=== PATIENT | female | born 1930 | race Caucasian/White ===

== ENCOUNTER 2018-04-03 09:14 | Inpatient (IN) | payer MEDICARE ==
[2018-04-03 10:42] LABS: #Lymphocytes 0.8 thou/uL (1.20-3.40); #Monocytes 0.8 thou/uL (0.11-0.59); #Neutrophils 13.7 thou/uL (1.40-6.50); %Basophils 0.1 % (0.0-1.0); %Eosinophils 0.1 % (0.0-10.0); %Lymphocytes 5.2 % (21.0-51.0); %Monocytes 4.9 % (0.0-10.0); %Neutrophils 89.6 % (42.0-75.0); Hemoglobin 13.9 g/dL (12.0-16.0); Mean Corpuscular HGB CONC 32.3 g/dL (32.0-36.0); Mean Corpuscular Volume 99.1 fL (78.0-98.0); Mean Platelet Volume 7.5 fL (7.4-10.4); Platelet Count 241 thou/uL (130-400); RBC Distribution Width 12.4 % (11.5-14.5); Red Blood Cell (RBC) Count 4.35 mill/uL (4.20-5.40); White Blood Cell (WBC) Count 15.2 thou/uL (4.8-10.8)
[2018-04-03 11:07] LABS: Troponin I 0.026 ng/mL (< 0.028)
[2018-04-03 11:12] LABS: CKMB 25.4 ng/mL (0-6.6)
[2018-04-03 12:04] LABS: Bilirubin Negative (Negative); Blood, Urine Small (Negative); Glucose, Urine (Dipstick) Negative (Negative); Leukocyte Trace (Negative); Nitrite Positive (Negative); Protein, Urine (Dipstick) Negative (Neg-Trace); Urobilinogen 0.2 mg/dL (0.2-1.0); pH, Urine 5.5 (5.0-9.0)
[2018-04-03 12:06] LABS: Clarity Cloudy (Clear)
[2018-04-03 12:07] LABS: Specific Gravity, Urine 1.019 (1.002-1.036)
[2018-04-03 12:07] LABS: Albumin 4.2 g/dL (3.4-4.8)
[2018-04-03 12:08] LABS: Chloride 108 mmol/L (98-107); Potassium 3.7 mmol/L (3.5-5.1)
[2018-04-03 12:09] LABS: Calcium 9.6 mg/dL (7.8-10.44); Sodium 146 mmol/L (136-145)
--- NOTE | 2018-04-03 12:09 | CT ---
BRAIN CTR WITHOUT IV CONTRAST: History: 87-year-old female with history of injury. FINDINGS: There is some atrophy and chronic white matter ischemic change bilaterally. No focal mass or midline shift. No intra or extraaxial hemorrhage. There is mucosal or soft tissue changes filling the entire right maxillary sinus as well as disease in the right ethmoid sinus and right frontal sinus. These ch anges are new when compared to an 01-11-17 study. The mastoids are clear. IMPRESSION: Extensive sinus mucosal changes filling the entire right maxillary sinus with disease in the right et hmoid and right frontal sinus where sparing of the sphenoid sinus. No intracranial mass or acute hemo rrhage. POS: [facility]
[2018-04-03 12:10] LABS: Glucose 86 mg/dL (83-110); Protein, Total 7.2 g/dL (6.0-8.3)
--- NOTE | 2018-04-03 12:10 | RAD ---
RADIOGRAPH CHEST 1 VIEW: DATE: 04-03-18 TIME: 11:06 A.M. HISTORY: 87-year-old female status post acute chest trauma from fall. FINDINGS: There is cardiomegaly. The thoracic aorta is tortuous and ectatic. There is no evidence of air space density, pulmonary edema, or pneumothorax. The lateral costophrenic angles are sharp. There is no i nterval change from 17. IMPRESSION: 1) No acute pulmonary findings. 2) Cardiomegaly without congestive heart failure. 3) Ectasia of thoracic aorta. 4) Elevated right hemidiaphragm. 5) Pacemaker. margie POS: [facility]
[2018-04-03 12:11] LABS: Anion Gap 25 mmol/L (10-20); Carbon Dioxide 17 mmol/L (23-31)
[2018-04-03 12:12] LABS: Bilirubin, Total 0.6 mg/dL (0.2-1.2)
--- NOTE | 2018-04-03 12:12 | RAD ---
PELVIS ONE VIEW: History: Injury. Comparison: None. FINDINGS: No displaced fracture of the pelvis is appreciated. Superior and inferior pubic rami are intact. IMPRESSION: No acute abnormality. POS: [facility]
[2018-04-03 12:13] LABS: Alkaline Phosphatase 63 U/L (40-150); Calc. Creatinine Clearance 0 mL/min (70-130); Estimated GFR-MDRD 70
[2018-04-03 12:14] LABS: BUN (Urea Nitrogen) 37 mg/dL (9.8-20.1)
[2018-04-03 12:15] LABS: AST (SGOT) 50 U/L (5-34)
--- NOTE | 2018-04-03 12:15 | CT ---
CT CERVICAL SPINE WITH CORONAL AND SAGITTAL REFORMATS: History: Trauma. Fall. Neck pain. FINDINGS: Multilevel degenerative changes are present. No acute fracture or subluxation is seen. No facet malal ignment is identified. There are thyroid nodules, the largest measuring about 2 cm in the right lobe. This would be better e valuated on an ultrasound on a non-emergent basis. POS: [facility]
[2018-04-03 12:16] LABS: ALT (SGPT) 12 U/L (8-55); CK (CPK) 1517 U/L (29-168)
[2018-04-03 12:17] LABS: Bacteria/HPF 3+ HPF (None Seen); Transitional Epithelial 0-3 HPF (0-3)
[2018-04-03] MEDS ORDERED: Vancomycin HCl 500 MG VIAL ONE (13:06)
[2018-04-03] MEDS ORDERED: Levofloxacin 500 mg/D5W 100 ml Premix Bag ONE (13:08)
[2018-04-03] MEDS ORDERED: Ondansetron ODT 4 MG TAB PO PRN (14:20)
[2018-04-03 14:23] VITALS: BMI 24.0
--- NOTE | 2018-04-03 14:45 | HP ---
DATE OF ADMISSION: 04/03/2018 PRIMARY CARE PROVIDER: Love Hall D.O. REASON FOR ADMISSION: Referred from [facility] for rhabdomyolysis, UTI, hyperna tremia. HISTORY OF PRESENT ILLNESS: The patient's caregiver (she has everyday caregivers) [facility] the [facility]. She was initially somewhat responsive despite having dementia. At th e time I have examined her, she does not respond to verbal or mild physical stimuli. The caregiver f ound as she looked around that the patient had not been given her medicines over the weekend and niurka junior had not been seen. She called 911. She was brought to the emergency room. The patient is cu rrently as I previously said not responsive to verbal or mild tactile stimuli. No other history is a vailable. PAST MEDICAL HISTORY: Pertinent for mitral insufficiency, hypertension, irritable bowel syndrome, ch ronic back pain, hypercholesterolemia, anxiety disorder, macular degeneration, dysthymic disorder, ga stroesophageal reflux disease, insomnia. CURRENT MEDICATIONS: Aspirin 325 mg a day, candesartan 8 mg a day, Singulair 10 mg a day, ferrous adam lfate 325 mg twice a day, Risperdal 0.25 mg twice a day, Protonix 40 mg a day, Osteo Bi-Flex, Alrex, ICaps, Systane Ultra, Zoloft 50 mg a day. ALLERGIES: CODEINE, LYRICA and PENICILLINS. PAST SURGICAL HISTORY: Knee replacement, right foot surgery, tubal ligation, hysterectomy, cholecyst ectomy, pacemaker. SOCIAL HISTORY: Lives alone, but has daily caregivers. She also has home health. She is a nonsmoke r. Her son, Juan Khan is her decision maker. She is DNR with a documented resuscitation statu s. This was confirmed. FAMILY HISTORY: She has a son with a heart murmur and back pain. Her parents are . No hist ory. REVIEW OF SYSTEMS: Unobtainable due to the fact that the patient is nonresponsive to verbal stimuli and apparently has not seen a caregiver in 2 days. PHYSICAL EXAMINATION: VITAL SIGNS: Not responsive to verbal or mild stimuli, physical. Blood pressure 120/72, pulse 84, r espirations 18, temperature 98.9, room air sat 94. HEENT: Reveal pupils are about 2 mm and minimally reactive. Extraocular movements reveal negative d oll's eyes. Sclerae are white. Tympanic membranes are clear. Nose is clear. Oral mucous membranes are dry. In addition, her skin turgor is poor. NECK: No jugular venous distention, adenopathy or thyromegaly. CHEST: Clear to auscultation and percussion. Poor inspiratory effort, however. HEART: Regular rate and rhythm. A 3/6 holosystolic murmur across the precordium, loudest at the ape x. ABDOMEN: Soft. Bowel sounds normal. No hepatosplenomegaly, no mass, no rebound, no bruits. EXTREMITIES: Reveal no cyanosis, clubbing or edema. PULSES: Carotid, radial and femoral pulses were palpable and symmetric. Pedal pulses were a little difficult, but present. SKIN: Warm and dry with no bruises. No rash. HEME/LYMPH: No tender or swollen lymph nodes in axilla, inguinal or cervical area. NEUROLOGIC: Cranial nerves II-XII grossly intact. Deep tendon reflexes symmetric. Toes downgoing. IMAGING: EKG, regular sinus rhythm, nonspecific ST-T abnormality. Chest x-ray, borderline cardiomeg marvin, no infiltrate or CHF, pacemaker in the left upper chest, reviewed by me. Brain CT, no acute int racranial abnormality, specifically no bleeding or mass effect, reviewed by me. LABORATORY DATA: CBC, white count 15.2, hemoglobin 13.9, platelet count 244,000. Chemistry, sodium high at 146, potassium normal at 3.7, chloride high at 108, CO2 low at 17, BUN high at 37, creatinine normal at 0.78, AST 50. Liver function tests normal otherwise. Creatine kinase 1517. Urinalysis 4 -6 white cells with trace leukocyte esterase. ADMITTING DIAGNOSES: 1. Encephalopathy. 2. Rhabdomyolysis. 3. Dehydration. 4. Hypernatremia. 5. Urinary tract infection. 6. Mitral insufficiency. 7. Hypertension. PLAN: 1. IV fluids with D5 half normal saline. Monitor basic metabolic profile. 2. Cultures have been drawn. Rocephin will be started for urinary tract infection. 3. Monitor CK, mental status, etc. Routine medicines will be held for a brief period of time and th en reinstituted as appropriate.
[2018-04-03] MEDS: cefTRIAXone\\ROCEPHIN 1 GM in Sodium Chloride 0.9% 100 ML IVPB SCH (16:08)
[2018-04-03] MEDS: D5 1/4 NS w/20 mEq KCL 1,000 ML IV SCH ×2 (16:31→23:44)
[2018-04-04 05:01] LABS: Anion Gap 11 mmol/L (10-20); BUN (Urea Nitrogen) 28 mg/dL (9.8-20.1); Calc. Creatinine Clearance 46 mL/min (70-130); Calcium 8.9 mg/dL (7.8-10.44); Carbon Dioxide 25 mmol/L (23-31); Chloride 110 mmol/L (98-107); Estimated GFR-MDRD 69; Glucose 118 mg/dL (83-110); Potassium 3.6 mmol/L (3.5-5.1); Sodium 142 mmol/L (136-145)
[2018-04-04] MEDS: D5 1/4 NS w/20 mEq KCL 1,000 ML IV SCH ×3 (07:59→15:01)
[2018-04-04] MEDS: Enoxaparin Sodium 40 MG/0.4 ML SYRINGE SC SCH (08:00)
--- NOTE | 2018-04-04 13:08 | PDOC.PN ---
- Subjective Encounter Start Date: 04/04/18 Encounter Start Time: 13:06 Subjective: more alert - Objective Resuscitation Status: Resuscitation Status DNR:Do Not Resuscitate MAR Reviewed: Yes Vital Signs & Weight: Vital Signs (12 hours) Temp Pulse Resp BP Pulse Ox 04/04/18 12:26 99.4 F 84 16 125/73 94 L 04/04/18 08:32 99.2 F 84 20 136/68 93 L 04/04/18 08:00 93 L Weight Weight 127 lb 4.8 oz I&O: 04/03/18 04/04/18 04/05/18 06:59 06:59 06:59 Intake Total 2600 Balance 2600 Result Diagrams: 04/03/18 09:53 04/04/18 04:14 Phys Exam - Physical Examination Neck: no JVD Respiratory: clear to auscultation bilateral Cardiovascular: RRR, no significant murmur Gastrointestinal: soft, positive bowel sounds Musculoskeletal: no edema Dx/Plan (1) Rhabdomyolysis Code(s): M62.82 - RHABDOMYOLYSIS Status: Acute (2) Hypernatremia Code(s): E87.0 - HYPEROSMOLALITY AND HYPERNATREMIA Status: Resolved (3) UTI (urinary tract infection) Status: Acute (4) Encephalopathy Code(s): G93.40 - ENCEPHALOPATHY, UNSPECIFIED Status: Acute - Plan cont iv fluids -: cont antibx -: await C&S -: selected home meds * .
[2018-04-04] MEDS: cefTRIAXone\\ROCEPHIN 1 GM in Sodium Chloride 0.9% 100 ML IVPB SCH (15:01)
[2018-04-04] MEDS: Polyethylene Glycol OPTH DROP 15 ML BOT EA EYE SCH ×2 (16:37→20:00)
[2018-04-04] MEDS: Ferrous Sulfate 325 MG TAB PO SCH (20:00)
[2018-04-04] MEDS: risperiDONE 0.25 MG TAB PO SCH (20:00)
[2018-04-04] MEDS ORDERED: LOTEPREDNOL ETABONATE EA EYE SCH (21:00)
[2018-04-04] MEDS: Acetaminophen 325 MG TAB PO PRN (23:46)
--- NOTE | 2018-04-04 23:48 | PDOC.EVN ---
Event Note - Event Note Event Note: pt had a fever of 101. blood cx drawn but pt is on abx. previous urine cx indicated enterococcus and Proteus. pt is also tachypnic will change abx to meropenem.
[2018-04-05] MEDS ORDERED: MEROPENEM 1 GM/50 ML 1 GM in Premix Bag 1 BAG IVPB SCH (00:30)
[2018-04-05] MEDS ORDERED: Vancomycin HCl 1 GM in Premix Bag 1 BAG IVPB SCH (00:45)
[2018-04-05] MEDS: D5 1/4 NS w/20 mEq KCL 1,000 ML IV SCH ×4 (02:09→23:30)
[2018-04-05] MEDS ORDERED: Meropenem 1 GM in Sodium Chloride 0.9% 100 ML IVPB SCH (06:00)
[2018-04-05 06:19] LABS: Anion Gap 9 mmol/L (10-20); BUN (Urea Nitrogen) 10 mg/dL (9.8-20.1); Calc. Creatinine Clearance 60 mL/min (70-130); Calcium 8.8 mg/dL (7.8-10.44); Carbon Dioxide 26 mmol/L (23-31); Chloride 103 mmol/L (98-107); Estimated GFR-MDRD Greater than 90; Glucose 159 mg/dL (83-110); Potassium 4.1 mmol/L (3.5-5.1); Sodium 134 mmol/L (136-145)
[2018-04-05] MEDS: Ferrous Sulfate 325 MG TAB PO SCH ×2 (09:20→20:39)
[2018-04-05] MEDS: risperiDONE 0.25 MG TAB PO SCH ×2 (09:20→20:40)
[2018-04-05] MEDS: Enoxaparin Sodium 40 MG/0.4 ML SYRINGE SC SCH (09:21)
[2018-04-05] MEDS: Polyethylene Glycol OPTH DROP 15 ML BOT EA EYE SCH ×4 (09:21→20:40)
[2018-04-05] MEDS: Aspirin 325 mg Enteric Coated Tablet PO SCH (09:21)
--- NOTE | 2018-04-05 11:13 | PDOC.PN ---
- Subjective Encounter Start Date: 04/05/18 Encounter Start Time: 11:11 Subjective: no distress, elevated temp last pm - Objective Resuscitation Status: Resuscitation Status DNR:Do Not Resuscitate MAR Reviewed: Yes Vital Signs & Weight: Vital Signs (12 hours) Temp Pulse Resp BP BP Pulse Ox 04/05/18 07:48 16 98 04/05/18 07:14 98.7 F 81 28 H 126/75 100 04/05/18 05:23 98.5 F 81 24 H 122/78 100 04/05/18 04:00 99 04/05/18 01:00 99.3 F 04/05/18 00:00 101.2 F H 99 20 126/84 94 L Weight Weight 127 lb 4.8 oz I&O: 04/04/18 04/05/18 04/06/18 06:59 06:59 06:59 Intake Total 2600 3330 Balance 2600 3330 Result Diagrams: 04/03/18 09:53 04/05/18 05:41 Phys Exam - Physical Examination Neck: no JVD Respiratory: clear to auscultation bilateral Cardiovascular: RRR, no significant murmur Gastrointestinal: soft, positive bowel sounds Musculoskeletal: no edema Dx/Plan (1) Rhabdomyolysis Code(s): M62.82 - RHABDOMYOLYSIS Status: Acute (2) Hypernatremia Code(s): E87.0 - HYPEROSMOLALITY AND HYPERNATREMIA Status: Resolved (3) UTI (urinary tract infection) Status: Acute (4) Encephalopathy Code(s): G93.40 - ENCEPHALOPATHY, UNSPECIFIED Status: Acute (5) Fever Code(s): R50.9 - FEVER, UNSPECIFIED Status: Acute - Plan urine C&S not obtained in ED -: rpt order UA urine C&C, CK, CBC -: cont iv antibx * .
[2018-04-05 12:15] LABS: #Lymphocytes 0.9 thou/uL (1.20-3.40); #Monocytes 1.5 thou/uL (0.11-0.59); #Neutrophils 8.4 thou/uL (1.40-6.50); %Basophils 0.1 % (0.0-1.0); %Eosinophils 0.4 % (0.0-10.0); %Lymphocytes 8.5 % (21.0-51.0); %Monocytes 13.6 % (0.0-10.0); %Neutrophils 77.4 % (42.0-75.0); Hemoglobin 12.1 g/dL (12.0-16.0); Mean Corpuscular HGB CONC 31.1 g/dL (32.0-36.0); Mean Corpuscular Hemoglobin 30.9 pg (27.0-31.0); Mean Corpuscular Volume 99.2 fL (78.0-98.0); Mean Platelet Volume 7.9 fL (7.4-10.4); Platelet Count 206 thou/uL (130-400); RBC Distribution Width 12.1 % (11.5-14.5); Red Blood Cell (RBC) Count 3.92 mill/uL (4.20-5.40); White Blood Cell (WBC) Count 10.8 thou/uL (4.8-10.8)
[2018-04-05] MEDS: Acetaminophen 325 MG TAB PO PRN (12:29)
[2018-04-05] MEDS: cefTRIAXone\\ROCEPHIN 1 GM in Sodium Chloride 0.9% 100 ML IVPB SCH (15:35)
--- NOTE | 2018-04-05 17:23 | PQF ---
CLINICAL DOCUMENTATION IMPROVEMENT CLARIFICATION FORM: ICD-10 Updated PLEASE DO AN ADDENDUM TO THE PROGRESS NOTE WITH ANY DOCUMENTATION UPDATES OR ADDITIONS AND CARRY THROUGH TO DC SUMMARY. THANK YOU. DATE: 04/05/18 ; 04/06/18 ATTN: Dr. Radford/ Dr. Jewell Please exercise your independent, professional judgment in responding to the clarification form. Clinical indicators are provided on the bottom of this form for your review Please check appropriate box(s): [ x] Encephalopathy: Etiology: [ x] Metabolic [ ] Toxic [ ] Septic [ ] Unspecified [ ] in the setting of underlying dementia [ ] Other (please specify) [ ] Other diagnosis [ ] Unable to determine In addition, please specify: Present on Admission (POA): [x ] Yes [ ] No [ ] Unable to determine For continuity of documentation, please document condition throughout progress notes and discharge summary. Thank You. CLINICAL INDICATORS - SIGNS / SYMPTOMS / LABS EVENT NOTE 04/04: PT HAD A FEVER OF 101. PREVIOUS URINE CX INDICATED ENTEROCOCCUS & PROTEUS. PT IS ALSO TACHYPNIC WILL CHANGE ABX TO MEROPENEM PN 04/04-04/05: ENCEPHALOPATHY, UNSPECIFIED. ACUTE RISKS: H&P 04/03: 87 YO. PT'S CAREGIVER FOUND HER ON THE FLOOR. ENCEPHALOPATHY. RHABDOMYOLYSIS. DEHYDRATION. HYPERNATREMIA. UTI TREATMENT: H&P: IV FLUIDS WITH D5 HALF NS. MONITOR BASIC METABOLIC PROFILE. MONITOR CK, MENTAL STATUS ORDER 04/05: IV VANCOMYCIN; IV ROCEPHIN ORDER 04/04: BLOOD CX Thank you, Katherine (This form is maintained as a part of the permanent medical record) 2015 [employer]. All Rights Reserved Katherine Bauman RN, BSN [email or web address] Office: [phone] [facility]
[2018-04-05] MEDS: Fiorinal 325/50/40 mg Tablet PO SCH (20:41)
[2018-04-05] MEDS ORDERED: CAFFEINE PO SCH (21:00)
[2018-04-05] MEDS ORDERED: BUTALBITAL PO SCH (21:00)
[2018-04-05] MEDS ORDERED: ASPIRIN PO SCH (21:00)
[2018-04-05] MEDS ORDERED: [UNRECOGNIZED DRUG - OTHER] PO SCH (21:00)
[2018-04-06] MEDS ORDERED: Vancomycin HCl 750 MG in Sodium Chloride 0.9% 250 ML 250 ML IVPB SCH (01:00)
[2018-04-06] MEDS: Vancomycin HCl 750 MG in Sodium Chloride 0.9% 250 ML 250 ML IVPB SCH (02:17)
[2018-04-06] MEDS: D5 1/4 NS w/20 mEq KCL 1,000 ML IV SCH (06:35)
[2018-04-06] MEDS: Ferrous Sulfate 325 MG TAB PO SCH ×2 (08:50→20:19)
[2018-04-06] MEDS: Polyethylene Glycol OPTH DROP 15 ML BOT EA EYE SCH ×4 (08:50→20:20)
[2018-04-06] MEDS: risperiDONE 0.25 MG TAB PO SCH ×2 (08:50→20:20)
[2018-04-06] MEDS: Aspirin 325 mg Enteric Coated Tablet PO SCH (08:50)
[2018-04-06] MEDS: Enoxaparin Sodium 40 MG/0.4 ML SYRINGE SC SCH (08:51)
[2018-04-06] MEDS ORDERED: Docusate 100 MG CAP PO SCH (12:00)
--- NOTE | 2018-04-06 13:12 | PDOC.PN ---
- Subjective Encounter Start Date: 04/06/18 Encounter Start Time: 11:00 Subjective: awake, no sob or chest pain, is sitting in chair - Objective Resuscitation Status: Resuscitation Status DNR:Do Not Resuscitate MAR Reviewed: Yes Vital Signs & Weight: Vital Signs (12 hours) Temp Pulse Resp BP Pulse Ox Pulse Ox 04/06/18 12:37 98.6 F 88 16 118/86 99 04/06/18 09:16 98 04/06/18 08:00 98.2 F 74 16 144/83 H 99 04/06/18 03:37 98.8 F 84 16 143/78 H 93 L Weight Weight 127 lb 4.8 oz I&O: 04/05/18 04/06/18 04/07/18 06:59 06:59 06:59 Intake Total 3330 1970 Output Total 1000 Balance 3330 970 Result Diagrams: 04/05/18 05:41 04/05/18 05:41 Phys Exam - Physical Examination HEENT: PERRLA, moist MMs Neck: no JVD, supple Respiratory: no wheezing, no rales Cardiovascular: RRR, no significant murmur Gastrointestinal: soft, non-tender, positive bowel sounds Musculoskeletal: no edema, pulses present Neurological: non-focal is deconditioned Dx/Plan (1) Rhabdomyolysis Code(s): M62.82 - RHABDOMYOLYSIS Status: Acute Qualifiers: Encounter type: subsequent encounter (2) Physical deconditioning Code(s): R53.81 - OTHER MALAISE Status: Acute (3) Encephalopathy Code(s): G93.40 - ENCEPHALOPATHY, UNSPECIFIED Status: Acute Comment: resolving (4) UTI (urinary tract infection) Status: Acute Qualifiers: Urinary tract infection type: acute cystitis Hematuria presence: without hematuria Qualified Code(s): N30.00 - Acute cystitis without hematuria (5) Hypernatremia Code(s): E87.0 - HYPEROSMOLALITY AND HYPERNATREMIA Status: Resolved (6) Hypertension Code(s): I10 - ESSENTIAL (PRIMARY) HYPERTENSION Status: Chronic Qualifiers: Hypertension type: essential hypertension Qualified Code(s): I10 - Essential (primary) hypertension - Plan hemostable -: family at bedside is encouraging po intake -: dc iv fluids -: PT eval, dc plan in am to coperas [place] -: is on ceftri and vanc, asp, candesartan, risperdal and zoloft * . Review of Systems - Medications/Allergies Allergies/Adverse Reactions: Allergies Allergy/AdvReac Type Severity Reaction Status Date / Time pregabalin [From Lyrica] Allergy Unknown Verified 01/11/17 15:20 codeine Allergy Verified 07/01/15 03:12 Latex, Natural Rubber Allergy Verified 04/05/18 00:18 Penicillins Allergy Verified 07/01/15 03:12 Medications: Current Medications Acetaminophen (Tylenol) 650 mg PO Q4H PRN PRN Reason: Headache/Fever/Mild Pain (1-3) Last Admin: 04/05/18 12:29 Dose: 650 mg Aspirin (Ecotrin) 325 mg PO DAILY [facility] Last Admin: 04/06/18 08:50 Dose: 325 mg Butalbital/Aspirin/Caffeine (Fiorinal) 0 tab PO HS [facility] Last Admin: 04/05/18 20:41 Dose: 1 tab Candesartan Cilexetil (Atacand) 8 mg PO DAILY [facility] Last Admin: 04/06/18 08:49 Dose: 8 mg Docusate Sodium (Colace) 100 mg PO BID [facility] Docusate Sodium (Colace) 100 mg PO NOW [facility] Stop: 04/06/18 14:00 Last Admin: 04/06/18 13:07 Dose: Not Given Enoxaparin Sodium (Lovenox) 40 mg SC 0900 [facility] Last Admin: 04/06/18 08:51 Dose: 40 mg Ferrous Sulfate (Feosol) 325 mg PO BID [facility] Last Admin: 04/06/18 08:50 Dose: 325 mg Ceftriaxone Sodium 1 gm/ (Sodium Chloride) 100 mls @ 200 mls/hr IVPB 1500 [facility] Last Admin: 04/05/18 15:35 Dose: 100 mls Vancomycin HCl 750 mg/ Sodium (Chloride) 250 mls @ 200 mls/hr IVPB 0200 [facility] Last Admin: 04/06/18 02:17 Dose: 250 mls Miscellaneous Medication (Pharmacy To Dose) 1 each IVPB ONE PRN PRN Reason: Pharmacy to dose Stop: 04/15/18 00:38 Ondansetron HCl (Zofran Odt) 4 mg PO Q6H PRN PRN Reason: Nausea/Vomiting Pantoprazole Sodium (Protonix) 40 mg PO DAILY [facility] Last Admin: 04/06/18 08:50 Dose: 40 mg Loteprednol Etabonate [Alrex 0.2 % Ophth Susp] 1 Drop 0 each EA EYE BID [facility] Polyethylene Glycol (Miralax) 17 gm PO DAILY [facility] Propylene Glycol (Systane Opth Drop 15ml Bot) 1 drop EA EYE QID [facility] Last Admin: 04/06/18 08:50 Dose: 1 drop Risperidone (Risperidone) 0.25 mg PO BID [facility] Last Admin: 04/06/18 08:50 Dose: 0.25 mg Sertraline HCl (Zoloft) 50 mg PO DAILY [facility] Last Admin: 04/06/18 08:50 Dose: 50 mg
[2018-04-06] MEDS: cefTRIAXone\\ROCEPHIN 1 GM in Sodium Chloride 0.9% 100 ML IVPB SCH (15:12)
[2018-04-06] MEDS: Docusate 100 MG CAP PO SCH (20:20)
[2018-04-06] MEDS: Fiorinal 325/50/40 mg Tablet PO SCH (20:31)
[2018-04-07 01:29] LABS: Vancomycin, Trough 6.9 ug/mL
[2018-04-07] MEDS: Vancomycin HCl 750 MG in Sodium Chloride 0.9% 250 ML 250 ML IVPB SCH (01:48)
[2018-04-07] MEDS: Docusate 100 MG CAP PO SCH (07:59)
[2018-04-07] MEDS: Ferrous Sulfate 325 MG TAB PO SCH (07:59)
[2018-04-07] MEDS: risperiDONE 0.25 MG TAB PO SCH (08:00)
[2018-04-07] MEDS: Enoxaparin Sodium 40 MG/0.4 ML SYRINGE SC SCH (08:00)
[2018-04-07] MEDS: Aspirin 325 mg Enteric Coated Tablet PO SCH (08:00)
[2018-04-07] MEDS: Polyethylene Glycol OPTH DROP 15 ML BOT EA EYE SCH ×2 (08:03→12:59)
[2018-04-07] MEDS ORDERED: Polyethylene Glycol 3350 17 GM Packet PO SCH (09:00)
[2018-04-07 11:24] VITALS: BP 126/82; TEMP 98.6
--- NOTE | 2018-04-07 11:59 | PDOC.PN ---
- Subjective Encounter Start Date: 04/07/18 Encounter Start Time: 08:00 Subjective: no sob, feels better -: awake, follows verbal stimuli -: is moving all extremities - Objective Resuscitation Status: Resuscitation Status DNR:Do Not Resuscitate MAR Reviewed: Yes Vital Signs & Weight: Vital Signs (12 hours) Temp Pulse Resp BP Pulse Ox 04/07/18 11:24 98.6 F 92 18 126/82 92 L 04/07/18 07:55 96 04/07/18 07:45 98.8 F 80 16 145/93 H 96 04/07/18 05:00 17 151/85 H 94 L Weight Weight 127 lb 4.8 oz I&O: 04/06/18 04/07/18 04/08/18 06:59 06:59 06:59 Intake Total 1970 1700 Output Total 1000 Balance 970 1700 Result Diagrams: 04/05/18 05:41 04/05/18 05:41 Phys Exam - Physical Examination HEENT: PERRLA, moist MMs Neck: no JVD, supple Respiratory: no wheezing, no rales Cardiovascular: RRR, no significant murmur Gastrointestinal: soft, non-tender, positive bowel sounds Musculoskeletal: no edema, pulses present Neurological: non-focal, moves all 4 limbs Psychiatric: A&O x 3 Dx/Plan (1) Rhabdomyolysis Code(s): M62.82 - RHABDOMYOLYSIS Status: Resolved Qualifiers: Encounter type: subsequent encounter (2) Physical deconditioning Code(s): R53.81 - OTHER MALAISE Status: Acute (3) Encephalopathy Code(s): G93.40 - ENCEPHALOPATHY, UNSPECIFIED Status: Resolved (4) UTI (urinary tract infection) Status: Acute Qualifiers: Urinary tract infection type: acute cystitis Hematuria presence: without hematuria Qualified Code(s): N30.00 - Acute cystitis without hematuria (5) Hypernatremia Code(s): E87.0 - HYPEROSMOLALITY AND HYPERNATREMIA Status: Resolved (6) Hypertension Code(s): I10 - ESSENTIAL (PRIMARY) HYPERTENSION Status: Chronic Qualifiers: Hypertension type: essential hypertension Qualified Code(s): I10 - Essential (primary) hypertension - Plan is at baseline cognitive status -: to work with PT at [facility] -: hemostable -: dc pt on levaquin * .
--- NOTE | 2018-04-07 13:27 | DIS ---
DATE OF ADMISSION: 04/03/2018 DATE OF DISCHARGE: 04/07/2018 DISCHARGE DISPOSITION: To [facility]. PRIMARY DISCHARGE DIAGNOSES: Rhabdomyolysis with deconditioning, acute encephalopathy resolved, urin thomas tract infection, hypernatremia, hypertension. PROCEDURES DONE DURING HOSPITALIZATION: CT brain without IV contrast done showed extensive sinus muc osal changes, filling the entire right maxillary sinus with disease in the right ethmoid and right fr ontal sinus with sparing of the sphenoid sinus. No intracranial mass or acute hemorrhage seen. CT c ervical spine showed multilevel degenerative changes. No acute fracture or subluxation was seen. Th e patient had thyroid nodules with the largest measuring about 2 cm in the right lobe of her thyroid. Pelvic x-ray 1 view done showed no acute abnormality. Chest x-ray done showed no acute pulmonary f indings. There was cardiomegaly without congestion. Blood cultures x2, no growth. Urine culture, n o growth. Had a white count of 15 on the day of admission with 89% neutrophils. CK levels were 1517 on admission with repeat levels of 410 on the . BUN 10, creatinine 0.6. UA showed positive nit rite, trace leukoesterase, 4-6 wbc's and 3+ bacteria. DISCHARGE MEDICATIONS: Levaquin 500 mg p.o. daily for another 4 days, Risperdal 0.25 mg p.o. twice d aily, Colace 100 mg p.o. twice daily, sertraline 50 mg daily, Protonix 40 mg daily, Singulair 10 mg d aily, ferrous sulfate 325 mg p.o. twice daily, Atacand 8 mg p.o. daily, aspirin 325 mg p.o. daily. ALLERGIES: LYRICA, CODEINE, LATEX and PENICILLIN. DISCHARGE PLAN: The patient to follow up with primary care physician in 1 week. BRIEF COURSE DURING HOSPITALIZATION: The patient initially got admitted on the for acute enceph alopathy. Further workup revealed sinusitis with urinary tract infection. She has had multiple imag ing studies done, which have not shown any acute changes as described above. She had mild rhabdomyol ysis with acute kidney injury as well. The patient was gently hydrated and lopez cultures were obtaine d. She has responded to above measures. She has deconditioning and is being discharged to [facility] for further recuperation prior to going home. The patient would benefit from out patient ENT consultation after she finishes her course of antibiotics. She was on IV antibiotics, wh ich have been switched over to Levaquin at the time of discharge. A total of 35 minutes was spent on discharge plan. Please see a [id number] documentation on [facility] for the day of discharge.
[2018-04-07] MEDS ORDERED: Vancomycin HCl 750 MG in Sodium Chloride 0.9% 250 ML 250 ML IVPB SCH (14:00)
== END 2018-04-07 13:45 | DRG 557 ==
LOC: ERS 09:14 → T4-A 14:06
PROVIDERS: ADMIT Internal Medicine; ATTEND Internal Medicine
DX: M62.82 Rhabdomyolysis (principal); G93.41 Metabolic encephalopathy; E87.0 Hyperosmolality and hypernatremia; N17.9 Acute kidney failure, unspecified; N30.00 Acute cystitis without hematuria; E86.0 Dehydration; I10 Essential (primary) hypertension; I34.0 Nonrheumatic mitral (valve) insufficiency; Z95.0 Presence of cardiac pacemaker; E78.00 Pure hypercholesterolemia, unspecified; K21.9 Gastro-esophageal reflux disease without esophagitis; Z66 Do not resuscitate; J32.2 Chronic ethmoidal sinusitis; J32.1 Chronic frontal sinusitis
CPT/HCPCS: 36415; 51701; 70450; 71045; 72125; 72170; 80048; 80053; 80202; 81003; 81015; 82550; 82553; 84484; 85025; 87040; 87086; 93005; 96361; 96365; A4353; G8978-GP-CM; G8979-GP-CK; J0696; J1650; J1956; J2185; J3370; J7050

== ENCOUNTER 2019-02-14 11:27 | Emergency (ER) | payer MEDICARE ==
[2019-02-14 12:20] LABS: #Eosinphils 0.1 thou/uL (0.0-0.7); #Monocytes 0.8 thou/uL (0.11-0.59); #Neutrophils 6.3 thou/uL (1.40-6.50); %Basophils 0.5 % (0.0-1.0); %Eosinophils 0.9 % (0.0-10.0); %Lymphocytes 12.6 % (21.0-51.0); %Monocytes 9.4 % (0.0-10.0); %Neutrophils 76.6 % (42.0-75.0); Hemoglobin 12.4 g/dL (12.0-16.0); Mean Corpuscular HGB CONC 32.8 g/dL (32.0-36.0); Mean Corpuscular Hemoglobin 30.9 pg (27.0-31.0); Mean Corpuscular Volume 94.2 fL (78.0-98.0); Platelet Count 254 thou/uL (130-400); RBC Distribution Width 11.9 % (11.5-14.5); Red Blood Cell (RBC) Count 4.02 mill/uL (4.20-5.40); White Blood Cell (WBC) Count 8.3 thou/uL (4.8-10.8)
--- NOTE | 2019-02-14 12:24 | RAD ---
SINGLE VIEW OF CHEST: Date: 02/14/19 COMPARISON: 01/03/19. HISTORY: Altered mental status and hypoxia. FINDINGS: Single view of the chest shows enlarged but stable cardiomediastinal silhouette. The pacemaker is unc hanged in position. There is no evidence of consolidation, mass, or pleural effusion. IMPRESSION: Cardiomegaly without evidence of acute cardiopulmonary disease. POS: [facility]
[2019-02-14 12:32] LABS: Bilirubin Negative (Negative); Blood, Urine Negative (Negative); Clarity Clear (Clear); Glucose, Urine (Dipstick) Normal (Negative); Leukocyte Negative Leu/uL (Negative); Nitrite Negative (Negative); Protein, Urine (Dipstick) Negative (Neg-Trace); Urobilinogen Normal mg/dL (Less than 2)
[2019-02-14 12:38] LABS: ALT (SGPT) Less than 7 U/L (8-55); AST (SGOT) 10 U/L (5-34); Albumin 3.8 g/dL (3.4-4.8); Alkaline Phosphatase 64 U/L (40-110); Anion Gap 11 mmol/L (10-20); BUN (Urea Nitrogen) 13 mg/dL (9.8-20.1); Bilirubin, Total 0.4 mg/dL (0.2-1.2); Calc. Creatinine Clearance 0 mL/min (70-130); Calcium 9.1 mg/dL (7.8-10.44); Carbon Dioxide 24 mmol/L (23-31); Chloride 105 mmol/L (98-107); Estimated GFR-MDRD 75; Globulin 2.9 g/dL (2.4-3.5); Glucose 131 mg/dL (83-110); Protein, Total 6.7 g/dL (6.0-8.3); Sodium 136 mmol/L (136-145)
[2019-02-14] MEDS ORDERED: risperiDONE 1 MG TAB ONE (15:22)
== END 2019-02-14 16:12 | disposition home or self-care (01) ==
LOC: ERS 11:27
DX: R53.1 Weakness (principal); K21.9 Gastro-esophageal reflux disease without esophagitis; F03.90 Unspecified dementia, unspecified severity, without behavioral disturbance, psychotic disturbance, mood disturbance, and anxiety
CPT/HCPCS: 36415; 71045; 80053; 81003; 85025; 93005; A4353

== ENCOUNTER 2019-03-20 19:44 | Emergency (ER) | payer MEDICARE ==
--- NOTE | 2019-03-20 20:25 | RAD ---
AP view of the pelvis INDICATION: Fall COMPARISON: April 03, 2018 FINDINGS: Bones: There is diffuse osteopenia. No acute fracture or subluxation demonstrated. Hips: There is mild degenerative change of both hip joints. SI joints and symphysis pubis: There is mild degenerative change of both SI joints. Intrapelvic contents: There is a mild amount retained stool. IMPRESSION: No acute osseous abnormality.
--- NOTE | 2019-03-20 20:26 | RAD ---
Left hip 2 views INDICATION: Fall COMPARISON: None FINDINGS: Bones: No acute fracture or subluxation demonstrated. There is diffuse osteopenia. Hip joint: There is mild degenerative change of the left hip. SI joints and symphysis pubis: Radiographically normal. Intrapelvic contents: Visualized bowel gas pattern is within normal limits. Surrounding soft tissues: Injection granuloma overlies the left gluteal region. IMPRESSION: 1. No acute osseous abnormality.
--- NOTE | 2019-03-20 20:26 | RAD ---
XR Shoulder Lt 3 View STANDARD: 03/20/2019 8:01 PM CLINICAL INDICATION: Fall with left shoulder injury. COMPARISON: None. FINDINGS: Bones: There is diffuse osteopenia. There is postsurgical change of a left rotator cuff repair. No ac bill moore's slough fracture or subluxation demonstrated. Glenohumeral joint: Normal alignment. AC joint: Normal alignment. Visualized lung: Clear. There is a dual-lead pacemaker overlying the left chest wall. Soft tissues: Within normal limits. IMPRESSION: No acute osseous abnormality.
--- NOTE | 2019-03-20 20:27 | RAD ---
XR Knee Lt 4 View STANDARD: 03/20/2019 8:01 PM CLINICAL INDICATION: Fall with left knee injury COMPARISON: None. FINDINGS: Bones: No acute fracture or subluxation demonstrated. There is diffuse osteopenia. Joints: There is a left total knee arthroplasty. Prosthetic components project in expected position.. Soft Tissue: No acute abnormality.. IMPRESSION: No acute osseous abnormality..
--- NOTE | 2019-03-20 20:35 | CT ---
CT Brain WO Con: 03/20/2019 8:00 PM CLINICAL HISTORY: Fall with head injury. IMAGING TECHNIQUE: Multiple CT images were obtained of the brain without IV contrast. COMPARISON: December 26, 2018 FINDINGS: Brain: No acute infarct or hemorrhage is evident. No midline shift. Ventricles: Normal. No hydrocephalus.. Skull: Intact.. Visualized Paranasal sinuses: There is stable complete opacification of the right maxillary sinus. Th ere is stable moderate mucosal thickening in right ethmoid air cells.. Mastoid air cells:Clear. Extracranial soft tissues:There is a soft tissue contusion overlying the right maxillary region IMPRESSION: No acute intracranial abnormality.
--- NOTE | 2019-03-20 20:43 | CT ---
CT Cervical Spine WO Con Indication: Fall with neck injury COMPARISON: CT cervical spine dated December 26, 2018 FINDINGS: Fracture: None. Spinal alignment: No acute malalignment. Craniocervical junction: Within normal limits. Vertebral body heights: Maintained. Cervical spine degenerative change: There is stable moderate multilevel spondylosis of the cervical s pine. There is stable ankylosis of the left C3-C4 facet joints. Lung apices: Clear. There is a stable prominent nodule within the right thyroid lobe. IMPRESSION: No acute osseous abnormality.
--- NOTE | 2019-03-20 20:47 | CT ---
EXAM: CT facial bones PROVIDED CLINICAL HISTORY: Fall with facial injury COMPARISON: None FINDINGS: Bones: Nasal bones: Intact. Maxilla: There is a nondisplaced right maxillary sinus wall fracture involving the anterior and poste rior sharif of the right maxillary sinus. There is stable complete opacification the right maxillary sinus to comparison CTs of the brain. There is a prominent soft tissue contusion overlying the right maxillary sinus. Mandible: Intact. Zygomatic arches: Intact. Pterygoid plates: Intact. Orbital rims: Intact. Orbital wall and floor: Intact. Frontal skull: Intact. Paranasal sinuses: There is stable complete opacification of the right maxillary sinus with moderate mucosal thickening within the right ethmoid air cells. Orbits: Intact. Visualized intracranial contents: Intact. Cervical spine: Intact. Soft tissues: There is a soft tissue contusion overlying the right maxillary sinus. IMPRESSION: Nondisplaced right maxillary sinus wall fractures involving the anterior and posterior wall of the ri ght maxillary sinus.
== END 2019-03-20 22:27 | disposition home or self-care (01) ==
LOC: ERS 19:44
DX: S02.40CA Maxillary fracture, right side, initial encounter for closed fracture (principal); I10 Essential (primary) hypertension; K21.9 Gastro-esophageal reflux disease without esophagitis; F03.90 Unspecified dementia, unspecified severity, without behavioral disturbance, psychotic disturbance, mood disturbance, and anxiety; W18.30XA Fall on same level, unspecified, initial encounter
CPT/HCPCS: 70450; 70486; 72125; 72170; 93005

== ENCOUNTER 2019-05-20 14:22 | Emergency (ER) | payer MEDICARE ==
--- NOTE | 2019-05-20 15:28 | CT ---
EXAM: CT brain without contrast HISTORY: Fall with head trauma COMPARISON: 03/20/2019 TECHNIQUE: Multiple contiguous axial images were obtained and a CT of the brain without contrast. FINDINGS: The brain is normal in morphology and attenuation without focal lesions or confluent areas of infarction. There is no evidence of hydrocephalus, intracranial hemorrhage, or extra-axial fluid collection. There is right facial soft tissue swelling. There is opacification of the right maxillary sinus. The other visualized paranasal sinuses and mastoid air cells are well aerated. IMPRESSION: No evidence of acute intracranial abnormality
[2019-05-20] MEDS ORDERED: Acetaminophen 500 MG TAB ONE (15:31)
--- NOTE | 2019-05-20 15:32 | CT ---
EXAM: CT face without contrast HISTORY: Facial trauma after fall COMPARISON: 03/20/2019 TECHNIQUE: Multiple contiguous axial images were obtained and a CT of the face without contrast. Sagi ttal and coronal reformats were performed. FINDINGS: No facial fractures are identified. Moderate to severe right cheek soft tissue swelling is seen. The globes and retrobulbar soft tissues are unremarkable. There is opacification of the right maxillary sinus. A small amount of fluid is seen in some of the a nterior right ethmoid air cells. The other paranasal sinuses are well aerated without evidence of opacification. The mastoid air cells are well aerated. Visualized intracranial structures are unremarkable. IMPRESSION: No evidence of facial fracture
--- NOTE | 2019-05-20 15:40 | CT ---
EXAM: CT of the cervical spine without contrast HISTORY: Fall with head trauma and neck pain COMPARISON: 03/20/2019 TECHNIQUE: Multiple contiguous axial images were obtained in a CT of the cervical spine without contr ast. Sagittal and coronal reformats were performed. FINDINGS: The vertebral bodies and intervertebral discs demonstrate normal height and alignment witho ut fracture or subluxation. Mild diffuse degenerative changes are present. No prevertebral soft tissue swelling is seen. The posterior facets are well aligned. Normal alignment of the skull base with the cervical spine is seen. The lung apices and cervical soft tissues are unremarkable. IMPRESSION: No evidence of acute osseous abnormality of the cervical spine.
== END 2019-05-20 16:25 | disposition home or self-care (01) ==
LOC: ERS 14:22
DX: S00.83XA Contusion of other part of head, initial encounter (principal); I10 Essential (primary) hypertension; M19.90 Unspecified osteoarthritis, unspecified site; F03.90 Unspecified dementia, unspecified severity, without behavioral disturbance, psychotic disturbance, mood disturbance, and anxiety; E78.00 Pure hypercholesterolemia, unspecified; K21.9 Gastro-esophageal reflux disease without esophagitis; Z79.899 Other long term (current) drug therapy; Z79.82 Long term (current) use of aspirin; W05.0XXA Fall from non-moving wheelchair, initial encounter
CPT/HCPCS: 70450; 70486; 72125; 94760

== ENCOUNTER 2019-08-03 18:55 | Inpatient (IN) | payer MEDICARE ==
--- NOTE | 2019-08-03 19:32 | RAD ---
Portable frontal chest radiograph: 08/03/2019 COMPARISON: 02/14/2019 HISTORY: Choking, possible aspiration FINDINGS: There is a dual lead transvenous pacing device. There is stable prominence of the cardiac s ilhouette. There is a large hiatal hernia. There is new focal opacity in the right infrahilar region suspicious for infectious pneumonitis/aspir ation given provided history. This focal area of opacity in the right perihilar/infrahilar region is new when compared to 02/14/2019 examination and measures approximately 5-6 mm in craniocaudal dimen juan. IMPRESSION: New right hilar/infrahilar opacity as detailed above. Given provided history, findings adam ggest infectious pneumonitis/aspiration. Underlying mass cannot be excluded and thus, follow-up chest x-ray following treatment advised to document resolution. CODE T
[2019-08-03 19:36] LABS: #Eosinphils 0.1 thou/uL (0.0-0.7); #Lymphocytes 1.2 thou/uL (1.20-3.40); #Monocytes 1.1 thou/uL (0.11-0.59); #Neutrophils 13.3 thou/uL (1.40-6.50); %Basophils 0.2 % (0.0-1.0); %Eosinophils 0.5 % (0.0-10.0); %Lymphocytes 7.8 % (21.0-51.0); %Monocytes 7.1 % (0.0-10.0); %Neutrophils 84.4 % (42.0-75.0); Hemoglobin 12.6 g/dL (12.0-16.0); Mean Corpuscular HGB CONC 32.8 g/dL (32.0-36.0); Mean Corpuscular Volume 94.4 fL (78.0-98.0); Mean Platelet Volume 7.7 fL (7.4-10.4); Platelet Count 221 thou/uL (130-400); RBC Distribution Width 12.8 % (11.5-14.5); Red Blood Cell (RBC) Count 4.07 mill/uL (4.20-5.40); White Blood Cell (WBC) Count 15.7 thou/uL (4.8-10.8)
[2019-08-03 19:57] LABS: ALT (SGPT) 7 U/L (8-55); AST (SGOT) 21 U/L (5-34); Albumin 3.6 g/dL (3.4-4.8); Alkaline Phosphatase 63 U/L (40-110); Anion Gap 14 mmol/L (10-20); BUN (Urea Nitrogen) 21 mg/dL (9.8-20.1); Bilirubin, Total 0.4 mg/dL (0.2-1.2); Calc. Creatinine Clearance 0 mL/min (70-130); Calcium 9.1 mg/dL (7.8-10.44); Carbon Dioxide 17 mmol/L (23-31); Chloride 109 mmol/L (98-107); Estimated GFR-MDRD 53; Globulin 3.1 g/dL (2.4-3.5); Glucose 115 mg/dL (83-110); Potassium 4.5 mmol/L (3.5-5.1); Protein, Total 6.7 g/dL (6.0-8.3); Sodium 135 mmol/L (136-145)
[2019-08-03] MEDS ORDERED: Cefepime 2 GM VIAL ONE (20:03)
[2019-08-03] MEDS ORDERED: Vancomycin HCl 1.25 GM in Sodium Chloride 0.9% 250 ML 250 ML IVPB SCH (20:15)
[2019-08-03 21:03] LABS: Bilirubin Negative (Negative); Blood, Urine Negative (Negative); Glucose, Urine (Dipstick) Negative (Negative); Leukocyte Negative (Negative); Nitrite Negative (Negative); Protein, Urine (Dipstick) Negative (Neg-Trace); Urobilinogen 0.2 mg/dL (Less than 2)
[2019-08-03 21:04] LABS: Clarity Clear (Clear)
[2019-08-03 22:13] LABS: Lactic Acid 0.5 mmol/L (0.5-2.2)
[2019-08-03] MEDS ORDERED: Ondansetron ODT 4 MG TAB SL PRN (22:50)
[2019-08-03] MEDS ORDERED: Ondansetron PF 4 MG/2 ML Vial IVP PRN (22:50)
[2019-08-03 23:29] VITALS: BMI 16.9
[2019-08-04] MEDS ORDERED: Acetaminophen 325 MG TAB PO PRN (01:25)
[2019-08-04] MEDS ORDERED: Acetaminophen 650 MG Suppository PR PRN (01:25)
--- NOTE | 2019-08-04 02:03 | PDOC.HHP ---
Hospitalist HPI - History of Present Illness Choking episode due to FB History of Present Illness: Patient brought in due to hypoxia following a choking episode while eating chicken for dinner. The nursing staff lowered her to the ground and were able to dislodge the piece of chicken. She did not lose consciousness. Her coughing resolved. She was tachypneic and hypoxic en route to hospital per EMS. Since arriving her sats have improved. She has a known history of dysphagia and normally on a soft diet. She reportedly choked on a piece of chicken. She has a known history of dementia but reportedly alert to person. At present she is non-communicative. Per RN, she was minimally communicative when she first arrived. ED Course: EKG done in the ED showed NSR with HR of 96 CXR showed a new right hilar/infrahilar opacity, ?infectoius pneumonitis/ aspiration. Underlying mass cannot be excluded. Follow-up CXR recommended to confirm resolution. She was started on IV Abx for HAP, given cefepime, vanc and levaquin. Labs notable for WCC of 15.7, neutrophils 84%, lactic acid normal GFR 53, BUN 21, Creat 0.99 She was also given 1L NS. Hospitalist ROS - Review of Systems ROS unobtainable: due to mental status - Medication Medications: ALLERGIES: Pregabalin, Codeine, Penicillin Judy TueAug 03, 2019 19:23 BO [place] tablet : Strength - 180 mg : ORAL Patient Dose: 1 tab(s) Oral once a day. acetaminophen oral TueAug 03, 2019 19:23 BO [facility] [place] capsule : Strength - 500 mg : ORAL Patient Dose: 500 mg Oral every 6 hours PRN. aspirin (bulk) TueAug 03, 2019 19:23 BO [facility] [place] powder : MISCELLANEOUS Patient Dose: 325 mg Oral once a day. Benadryl oral TueAug 03, 2019 19:23 BO [facility] [place] capsule : Strength - 25 mg : ORAL Patient Dose: 25 mg Oral As Needed. veokxshlcm-hdzhrkj-ctnxjcsy TueAug 03, 2019 19:23 BO [facility] [place] capsule : Strength - 50 mg-325 mg-40 mg : ORAL Patient Dose: 1 tab(s) Oral every 12 hours PRN. ferrous sulfate TueAug 03, 2019 19:23 BO [facility] [place] tablet : Strength - 325 mg (65 mg iron) : ORAL Patient Dose: 1 tab(s) Oral 2 times a day. losartan TueAug 03, 2019 19:23 BO [facility] [place] tablet : Strength - 50 mg : ORAL Patient Dose: 50 mg Oral once a day. Megace TueAug 03, 2019 19:23 BO [facility] [place] suspension : Strength - 400 mg/10 mL (40 mg/mL) : ORAL Patient Dose: 10 mL Oral once a day. Miralax TueAug 03, 2019 19:23 BO [facility] powder in packet : Strength - 17 gram : ORAL Patient Dose: 17 g Oral once a day. montelukast TueAug 03, 2019 19:23 BO [facility] [place] tablet : Strength - 10 mg : ORAL Patient Dose: 10 mg Oral once a day. nystatin oral TueAug 03, 2019 19:23 BO [facility] [place] powder : Strength - 150 million unit : ORAL Patient Dose: As Needed. pantoprazole oral TueAug 03, 2019 19:23 BO [facility] [place] tablet,delayed release (DR/EC) : Strength - 20 mg : ORAL Patient Dose: 20 mg Oral once a day. potassium chloride oral TueAug 03, 2019 19:23 BO [facility] [place] packet : Strength - 20 mEq : ORAL Patient Dose: 20 mEq Oral once a day. RisperDAL TueAug 03, 2019 19:23 BO [facility] [place] tablet : Strength - 0.5 mg : ORAL Patient Dose: 0.5 mg Oral once a day (in the evening). Senna Plus 8.6 mg-50 mg tablet TueAug 03, 2019 19:23 BO [facility] [place] tablet : Strength - 8.6 mg-50 mg : ORAL Patient Dose: 1 tab(s) Oral 2 times a day. sertraline TueAug 03, 2019 19:23 BO [facility] [place] tablet : Strength - 100 mg : ORAL Patient Dose: 100 mg Oral once a day. Systane (PF) TueAug 03, 2019 19:23 BO [facility] [place] dropperette : Strength - 0.3 %-0.4 % : OPHTHALMIC (EYE) Patient Dose: 1 gtt Eyes Both 4 times a day. Therems-M TueAug 03, 2019 19:23 BO [facility] [place] tablet : Strength - 27 mg-0.4 mg : ORAL Patient Dose: 1 tab(s) Oral once a day. traZODone TueAug 03, 2019 19:23 BO [facility] [place] tablet : Strength - 50 mg : ORAL Patient Dose: 1 tab(s) Oral once a day (at bedtime). Ensure Clear oral liquid TueAug 03, 2019 19:24 BO [facility] [place] liquid : ORAL Patient Dose: 1 Oral 2 times a day. Flonase Allergy Relief TueAug 03, 2019 19:24 BO [facility] spray,suspension : Strength - 50 mcg/actuation : NASAL Patient Dose: 1 spray(s) Intranasal 2 times a day. Pataday TueAug 03, 2019 19:26 BO [facility] drops : Strength - 0.2 % : OPHTHALMIC (EYE) Patient Dose: 1 Drps Eyes Both once a day. Zofran oral TueAug 03, 2019 19:27 BO [facility] [place] tablet : Strength - 4 mg : ORAL Patient Dose: 4 mg Oral every 6 hours PRN. 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 Gastrointestinal: reports: GERD, Irritable bowel disease Heme/Onc: reports: Iron deficiency anemia Psych: reports: Depression Musculoskeletal: reports: Chronic low back pain, Osteoarthritis ENT: reports: Other (Chalres Bonnet syndrome, secondary to Macular degeneration) Renal/: reports: Other (Vaginal atrophy with prolapse) - Past Surgical History Past Surgical History: reports: Cholecystectomy, Hysterectomy, Total Knee Replacement, Tubal Ligation, Other (pacemaker, right foot surgery) - Social History Smoking Status: Never smoker Alcohol: reports: None Drugs: reports: none Living Situation: [facility] - Exam General Appearance: NAD General - other findings: Frail, non-communicative, resting comfortably ENT: normocephalic atraumatic Neck: supple, no lymphadenopathy Heart: RRR, murmur present Heart - other findings: Known MVP Respiratory: CTAB, no wheezes, no rales, no ronchi, normal chest expansion, no tachypnea Gastrointestinal: soft, no guarding, no rigidity Gastrointestinal - other findings: no apparent tenderness to palpation Extremities: no edema Extremities - other findings: overgrown toe nails, some of which are cracked close to the nailbed Neurological - other findings: noncommunicative, ?baseline due to dementia, speaking with RN earlier Musculoskeletal: normal tone Hospitalist Results - Labs Result Diagrams: 08/03/19 19:27 08/03/19 19:23 Lab results: WBC 15.7 thou/uL (4.8-10.8) H 08/03/19 19:27 Hgb 12.6 g/dL (12.0-16.0) 08/03/19 19:27 Hct 38.4 % (36.0-47.0) 08/03/19 19: MCV 94.4 fL (78.0-98.0) 08/03/19 19: Plt Count 221 thou/uL (130-400) 08/03/19 19: Neutrophils % 84.4 % (42.0-75.0) H 08/03/19 19:27 Sodium 135 mmol/L (136-145) L 08/03/19 19:23 Potassium 4.5 mmol/L (3.5-5.1) 08/03/19 19:23 Chloride 109 mmol/L (98-107) H 08/03/19 19:23 Carbon Dioxide 17 mmol/L (23-31) L 08/03/19 19:23 BUN 21 mg/dL (9.8-20.1) H 08/03/19 19:23 Creatinine 0.99 mg/dL (0.6-1.1) 08/03/19 19:23 Glucose 115 mg/dL (83-110) H 08/03/19 19:23 Lactic Acid 0.5 mmol/L (0.5-2.2) 08/03/19 21:46 Calcium 9.1 mg/dL (7.8-10.44) 08/03/19 19:23 Total Bilirubin 0.4 mg/dL (0.2-1.2) 08/03/19 19: AST 21 U/L (5-34) 08/03/19 19:23 ALT 7 U/L (8-55) L 08/03/19 19:23 Alkaline Phosphatase 63 U/L (40-110) 08/03/19 19:23 Serum Total Protein 6.7 g/dL (6.0-8.3) 08/03/19 19:23 Albumin 3.6 g/dL (3.4-4.8) 08/03/19 19:23 Urine Ketones Negative mg/dL (Negative) 08/03/19 20:47 Urine Blood Negative (Negative) 08/03/19 20:47 Urine Nitrite Negative (Negative) 08/03/19 20:47 Ur Leukocyte Esterase Negative (Negative) 08/03/19 20:47 Hospitalist H&P A/P - Problem (1) Choking due to food (regurgitated) Code(s): T17.320A - FOOD IN LARYNX CAUSING ASPHYXIATION, INITIAL ENCOUNTER Status: Acute (2) Aspiration into airway Code(s): T17.908A - UNSP FB IN RESP TRACT, PART UNSP CAUSING OTH INJURY, INIT Status: Acute (3) Aspiration pneumonia due to food (regurgitated) Code(s): J69.0 - PNEUMONITIS DUE TO INHALATION OF FOOD AND VOMIT Status: Acute (4) Dysphagia Code(s): R13.10 - DYSPHAGIA, UNSPECIFIED Status: Chronic (5) Altered mental status, unspecified Code(s): R41.82 - ALTERED MENTAL STATUS, UNSPECIFIED Status: Acute (6) Hyperlipidemia Code(s): E78.5 - HYPERLIPIDEMIA, UNSPECIFIED Status: Chronic (7) Pacemaker Code(s): Z95.0 - PRESENCE OF CARDIAC PACEMAKER Status: Chronic (8) Hypertension Code(s): I10 - ESSENTIAL (PRIMARY) HYPERTENSION Status: Chronic Qualifiers: Hypertension type: essential hypertension Qualified Code(s): I10 - Essential (primary) hypertension - Plan Plan: Continue IV Abx (Flagyl and Rocephin per Dr. Ruiz) Will need repeat imaging to ensure resolution of CXR findings. Duo nebs prn. Monitor O2 sats. Repeat labs in AM Monitor BP. Resume home meds once verified. Consider CT head if mentation does not improve in AM. Reportedly not communicative at night due to underlying dementia. Gentle hydration. Monitor renal function. Discussed with Dr. Ruiz who agrees with plan as above. MPOA: Juan Khan, her son.
[2019-08-04] MEDS: metroNIDAZOLE 500 MG in Premix Bag 1 BAG IVPB SCH ×3 (05:29→21:16)
[2019-08-04 06:36] LABS: #Eosinphils 0.1 thou/uL (0.0-0.7); #Lymphocytes 1.2 thou/uL (1.20-3.40); #Monocytes 0.8 thou/uL (0.11-0.59); #Neutrophils 8.7 thou/uL (1.40-6.50); %Basophils 0.3 % (0.0-1.0); %Eosinophils 1.3 % (0.0-10.0); %Lymphocytes 10.8 % (21.0-51.0); %Monocytes 7.4 % (0.0-10.0); %Neutrophils 80.2 % (42.0-75.0); Mean Corpuscular HGB CONC 33.1 g/dL (32.0-36.0); Mean Corpuscular Hemoglobin 30.7 pg (27.0-31.0); Mean Corpuscular Volume 92.9 fL (78.0-98.0); Mean Platelet Volume 7.7 fL (7.4-10.4); Platelet Count 183 thou/uL (130-400); RBC Distribution Width 12.6 % (11.5-14.5); Red Blood Cell (RBC) Count 3.57 mill/uL (4.20-5.40); White Blood Cell (WBC) Count 10.8 thou/uL (4.8-10.8)
[2019-08-04 06:48] LABS: Anion Gap 11 mmol/L (10-20); BUN (Urea Nitrogen) 16 mg/dL (9.8-20.1); Calc. Creatinine Clearance 43 mL/min (70-130); Calcium 8.4 mg/dL (7.8-10.44); Carbon Dioxide 19 mmol/L (23-31); Chloride 112 mmol/L (98-107); Estimated GFR-MDRD 86; Glucose 78 mg/dL (83-110); Sodium 138 mmol/L (136-145)
[2019-08-04] MEDS: cefTRIAXone\\ROCEPHIN 2 GM in Sodium Chloride 0.9% 100 ML IVPB SCH (08:36)
[2019-08-05] MEDS: metroNIDAZOLE 500 MG in Premix Bag 1 BAG IVPB SCH ×3 (04:36→19:51)
[2019-08-05] MEDS: cefTRIAXone\\ROCEPHIN 2 GM in Sodium Chloride 0.9% 100 ML IVPB SCH (08:19)
[2019-08-05 15:28] LABS: Anion Gap 13 mmol/L (10-20); BUN (Urea Nitrogen) 13 mg/dL (9.8-20.1); Band 12 % (5-11); Calc. Creatinine Clearance 43 mL/min (70-130); Calcium 8.8 mg/dL (7.8-10.44); Carbon Dioxide 21 mmol/L (23-31); Chloride 109 mmol/L (98-107); Eosinophils 2 % (0-10); Estimated GFR-MDRD 86; Glucose 100 mg/dL (83-110); Hemoglobin 11.1 g/dL (12.0-16.0); Lymphocytes 3 % (21-51); MDiff Complete? YES; Mean Corpuscular HGB CONC 33.4 g/dL (32.0-36.0); Mean Corpuscular Volume 92.7 fL (78.0-98.0); Mean Platelet Volume 7.1 fL (7.4-10.4); Monocytes 4 % (0-10); Neutrophil 74 % (42-75); Ovalocytes SLIGHT = 2-5 cells (100X) (0-1/hpf); Platelet Count 209 thou/uL (130-400); Platelet Morphology Comment Appears Adequate; Polychromasia SLIGHT = 2-3 cells (100X) (0-2/hpf); RBC Distribution Width 12.4 % (11.5-14.5); Reactive Lymphocytes 5 % (0-10); Red Blood Cell (RBC) Count 3.58 mill/uL (4.20-5.40); Schistocytes SLIGHT = 2-5 cells (100X) (0-1/hpf); Sodium 139 mmol/L (136-145); Tear Drops SLIGHT = 2-5 cells (100X) (0-1/hpf); White Blood Cell (WBC) Count 12.7 thou/uL (4.8-10.8)
--- NOTE | 2019-08-05 16:01 | PDOC.HOSPP ---
- Subjective Encounter Date: 08/05/19 Subjective: Alert and conversational today Stated that she feels hungry - Objective Vital Signs & Weight: Vital Signs (12 hours) Temp Pulse Resp BP Pulse Ox 08/05/19 08:11 98.3 F 88 16 151/77 H 96 08/05/19 08:00 96 Weight Admit Weight 101 lb 12.8 oz Weight 101 lb 12.8 oz I&O: 08/04/19 08/05/19 08/06/19 06:59 06:59 06:59 Intake Total 100 Output Total 150 1100 Balance -50 -1100 Result Diagrams: 08/05/19 14:58 08/05/19 14:58 Hospitalist ROS - Medication Medications: Active Medications Generic Name Dose Route Start Last Admin Trade Name Poonam PRN Reason Stop Dose Admin Ceftriaxone Sodium 2 gm/ 100 mls @ 200 mls/hr 08/04/19 08:00 08/05/19 08:19 Sodium Chloride IVPB 100 mls 0800 VARUN Administration Metronidazole 500 mg/ Device 100 mls @ 100 mls/hr 08/04/19 06:00 08/05/19 13: 48 IVPB 100 mls Q8HR VARUN Administration - Exam General Appearance: awake alert ENT: normocephalic atraumatic Neck: supple, no JVD Heart: RRR, no murmur, no gallops, no rubs, normal peripheral pulses Respiratory: CTAB, no wheezes, no rales, no ronchi, normal chest expansion Gastrointestinal: soft, non-tender, non-distended, normal bowel sounds Hosp A/P (1) Aspiration pneumonia due to food (regurgitated) Code(s): J69.0 - PNEUMONITIS DUE TO INHALATION OF FOOD AND VOMIT Status: Acute (2) Dysphagia Code(s): R13.10 - DYSPHAGIA, UNSPECIFIED Status: Chronic (3) Altered mental status, unspecified Code(s): R41.82 - ALTERED MENTAL STATUS, UNSPECIFIED Status: Acute - Plan Consult speech to evaluate swallowing safety and recommend diet Continue ABX PT&OT eval
[2019-08-06] MEDS: metroNIDAZOLE 500 MG in Premix Bag 1 BAG IVPB SCH ×2 (04:56→13:33)
[2019-08-06 08:02] VITALS: BP 131/72; TEMP 98
[2019-08-06] MEDS: cefTRIAXone\\ROCEPHIN 2 GM in Sodium Chloride 0.9% 100 ML IVPB SCH (08:46)
--- NOTE | 2019-08-06 19:15 | DIS ---
DATE OF ADMISSION: 08/03/2019 DATE OF DISCHARGE: 08/06/2019 DISCHARGE DIAGNOSES: 1. Aspiration pneumonia. 2. Dysphagia. 3. Altered mental status. DISCHARGE MEDICATIONS: 1. Clindamycin 450 mg orally q.6 hours for 3 days. 2. Lactinex chewable one tablet orally three times daily for 4 days. 3. Aspirin 325 mg orally daily. 4. Fioricet one tablet orally twice daily as needed for migraine. 5. Benadryl 25 mg orally nightly as needed for insomnia. 6. Ferrous sulfate 325 mg orally twice daily. 7. Judy 180 mg orally daily as needed for allergies. 8. Flonase one spray each naris twice daily as needed for allergies. 9. Losartan 50 mg orally daily. 10. Inveltys one drop each eye daily. 11. Megace 2.5 UD cup p.o. daily. 12. Singulair 10 mg orally nightly. 13. Nystatin powder 1 million units topical b.i.d. as needed for irritation in the perineal area. 14. Zofran 4 mg orally every 6 hours as needed for nausea. 15. Protonix 20 mg orally daily. 16. MiraLAX 17 g orally daily as needed for constipation. 17. Potassium 20 mEq orally daily. 18. Risperidone 1 mg orally daily and 0.5 mg orally nightly. 19. Sertraline 50 mg orally daily. 20. Trazodone 50 mg orally at bedtime. HISTORY OF PRESENT ILLNESS AND HOSPITAL COURSE: The patient is an 89-year-old female, residential resident, who was transferred to the hospital due to hypoxia following choking episode while eating chicken for dinner. In the ER, the patient's chest x-ray revealed findings consistent with possible aspiration pneumonia. The patient was placed on IV antibiotics and admitted to the hospital. Speech Therapy evaluation was performed and the recommendations are as follows: Pureed diet with nectar thick liquids by cup, medications are crushed and given with puree. No straws, sit fully upright, remain sitting upright for 30 minutes after a meal, small bites and sips, swallow hard and fast, alternate bites and sips, double swallow, and slow pacing. The patient did not exhibit any signs of sepsis and her condition deemed to be stable for discharge. Job ID: [id number]
--- NOTE | 2019-08-07 09:37 | PQF ---
CAORLSHREYAS MURRAY NAVNEET CATALAN [id number] T4-B- [id number] CLINICAL DOCUMENTATION CLARIFICATION FORM: POST DISCHARGE Addendum to original discharge summary date: ____ Late entry note date: __ DATE: 08/07/2019 ATTN:NAVNEET CATALAN Please exercise your independent, professional judgment in responding to the clarification form. Clinical indicators are provided on the bottom of this form for your review Please check appropriate box(s): [ '> ] Encephalopathy: Type: [ >] Acute [ ] Subacute [ ] Chronic Etiology: [ ] Hypertensive [ >] Metabolic [ ] Toxic [ ] Hepatic with Coma [ ] Hepatic w/o Coma [ ] Hypoxic [ ] Septic [ ] Drug induced: [ ] Unspecified [ ] in the setting of underlying dementia [ ] Other (please specify) [ ] Transient Alteration of Awareness [ ] Other diagnosis [ ] Unable to determine In addition, please specify: Present on Admission (POA): [ ] Yes [ ] No [ ] Unable to determine For continuity of documentation, please document condition throughout progress notes and discharge summary. Thank You. 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 All Rights Reserved [email or web address]
--- NOTE | 2019-08-08 18:45 | PQF ---
SHREYAS MEDINA NAVNEET CATALAN [id number] [facility] [id number] CLINICAL DOCUMENTATION IMPROVEMENT CLARIFICATION FORM: ICD-10 Updated PLEASE DO AN ADDENDUM TO THE PROGRESS NOTE WITH ANY DOCUMENTATION UPDATES OR ADDITIONS AND CARRY THROUGH TO DC SUMMARY. THANK YOU. Date: 08-08-19 ATTN: DR. CATALAN Please exercise your independent, professional judgment in responding to the clarification form. Clinical indicators are provided on the bottom of this form for your review Please check appropriate box(s): [ >] Protein Calorie Malnutrition: [ ] Mild [ ] Moderate [ >] Severe [ ] Other Malnutrition (please specify) __ [ ] Underweight without malnutrition [ ] Cachexia [ ] Other diagnosis [ ] Unable to determine CLINICAL INDICATORS - SIGNS / SYMPTOMS / LABS / RESULTS AND LOCATION IN MR NUTRITION THERAPY ASSESSMENT 08-04-19 * BMI of 16.9 * moderate to severe hamstring muscle wasting * moderate buccal fat loss * -14% wt loss x 6-7 months per EMR * suggesting severe malnutrition in the context of chronic illness RISK FACTORS / RESULTS AND LOCATION IN MR NUTRITION THERAPY ASSESSMENT 08-04-19 * DEMENTIA * DYSPHAGIA TREATMENT / RESULTS AND LOCATION IN MR NUTRITION THERAPY ASSESSMENT 08-04-19 1. Continue Regular type diet with textures/consistency per CENTRIFUGAL SCREEN TENDER to encourage PO intake. Heart Healthy most appropriate long-term. 2. RD to add Mighty Shakes TID on meal trays as they are already nectar thick. If pt doesn't like, then may add Ensure Enlive to see if pt likes this better. 3. Continue appetite stimulant. 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 Moderate Malnutrition (in chronic illness) Energy Intake: <75% of estimated energy requirement for >1 month Weight Loss: 5%/1 month; 7.5%/3 months; 10%/6 months; 20%/1 year Other: mild body fat loss; mild muscle mass loss; mild fluid accumulation Severe Malnutrition (in chronic illness) Energy Intake: <75% of estimated energy requirement for >1 month Weight Loss: >5%/1 month; >7.5%/3 months; >10%/6 months; >20%/1 year Other: severe body fat loss; severe muscle mass loss; severe fluid accumulation ; measurably reduced supervisor patching strength THANK YOU, VERENICE (This form is maintained as a part of the permanent medical record) 2015 [employer]. All Rights Reserved Verenice Ortez RN, BS [email or web address]
== END 2019-08-06 15:28 | DRG 177 ==
LOC: ERS 18:55 → T4-B 20:47
PROVIDERS: ADMIT Internal Medicine; ATTEND Internal Medicine
DX: J69.0 Pneumonitis due to inhalation of food and vomit (principal); E43 Unspecified severe protein-calorie malnutrition; G93.41 Metabolic encephalopathy; Z68.1 Body mass index [BMI] 19.9 or less, adult; R13.10 Dysphagia, unspecified; K21.9 Gastro-esophageal reflux disease without esophagitis; E78.00 Pure hypercholesterolemia, unspecified; F03.90 Unspecified dementia, unspecified severity, without behavioral disturbance, psychotic disturbance, mood disturbance, and anxiety; M19.90 Unspecified osteoarthritis, unspecified site; I10 Essential (primary) hypertension; M41.9 Scoliosis, unspecified; H54.8 Legal blindness, as defined in USA; E78.5 Hyperlipidemia, unspecified; G43.909 Migraine, unspecified, not intractable, without status migrainosus; D50.9 Iron deficiency anemia, unspecified; F32.9 Major depressive disorder, single episode, unspecified; G89.29 Other chronic pain; Z96.659 Presence of unspecified artificial knee joint; Z88.0 Allergy status to penicillin; Z88.8 Allergy status to other drugs, medicaments and biological substances; Z91.040 Latex allergy status; Z90.49 Acquired absence of other specified parts of digestive tract; Z90.710 Acquired absence of both cervix and uterus; Z91.81 History of falling; Z95.0 Presence of cardiac pacemaker; Z98.51 Tubal ligation status
CPT/HCPCS: 36415; 51701; 71045; 80048; 80053; 81003; 83605; 85007; 85025; 85027; 87040; 87086; 93005; 96361; 96365; 96366; 96375; A4353; J0692; J0696; J1956; J3370; J3490; J7050

== ENCOUNTER 2019-08-08 10:06 | Emergency (ER) | payer MEDICARE ==
[2019-08-08 11:23] LABS: #Eosinphils 0.2 thou/uL (0.0-0.7); %Basophils 0.4 % (0.0-1.0); %Eosinophils 1.7 % (0.0-10.0); %Lymphocytes 10.1 % (21.0-51.0); %Monocytes 9.7 % (0.0-10.0); %Neutrophils 78.2 % (42.0-75.0); Mean Corpuscular HGB CONC 33.5 g/dL (32.0-36.0); Mean Corpuscular Hemoglobin 31.1 pg (27.0-31.0); Mean Corpuscular Volume 92.9 fL (78.0-98.0); Mean Platelet Volume 7.9 fL (7.4-10.4); Platelet Count 201 thou/uL (130-400); RBC Distribution Width 12.7 % (11.5-14.5); Red Blood Cell (RBC) Count 3.86 mill/uL (4.20-5.40); White Blood Cell (WBC) Count 10.3 thou/uL (4.8-10.8)
--- NOTE | 2019-08-08 11:26 | RAD ---
XR Chest 1 View Portable HISTORY: Hypoxia and hypotension. COMPARISON: None. FINDINGS: Heart size is enlarged. Pacemaker is present. There is elevation to the right hemidiaphragm . Chronic appearing lung changes are seen. IMPRESSION: Cardiomegaly with chronic lung change. No acute findings.
[2019-08-08 11:40] LABS: ALT (SGPT) 8 U/L (8-55); AST (SGOT) 20 U/L (5-34); Albumin 3.5 g/dL (3.4-4.8); Alkaline Phosphatase 51 U/L (40-110); Anion Gap 12 mmol/L (10-20); BUN (Urea Nitrogen) 14 mg/dL (9.8-20.1); Bilirubin, Total 0.5 mg/dL (0.2-1.2); Calc. Creatinine Clearance 0 mL/min (70-130); Calcium 8.9 mg/dL (7.8-10.44); Carbon Dioxide 23 mmol/L (23-31); Chloride 108 mmol/L (98-107); Estimated GFR-MDRD 72; Globulin 2.8 g/dL (2.4-3.5); Glucose 120 mg/dL (83-110); Protein, Total 6.3 g/dL (6.0-8.3); Sodium 139 mmol/L (136-145)
[2019-08-08 14:18] LABS: Bilirubin Negative (Negative); Blood, Urine Negative (Negative); Clarity Clear (Clear); Glucose, Urine (Dipstick) Normal (Negative); Leukocyte Negative Leu/uL (Negative); Nitrite Negative (Negative); Protein, Urine (Dipstick) Negative (Neg-Trace); Urobilinogen Normal mg/dL (Less than 2)
== END 2019-08-08 15:36 | disposition home or self-care (01) ==
LOC: ERS 10:06
DX: R09.02 Hypoxemia (principal); I10 Essential (primary) hypertension; M19.90 Unspecified osteoarthritis, unspecified site; K21.9 Gastro-esophageal reflux disease without esophagitis; F03.90 Unspecified dementia, unspecified severity, without behavioral disturbance, psychotic disturbance, mood disturbance, and anxiety; E78.00 Pure hypercholesterolemia, unspecified; Z79.899 Other long term (current) drug therapy; Z79.82 Long term (current) use of aspirin
CPT/HCPCS: 36415; 51701; 71045; 80053; 81003; 84484; 85025; 93005; 94760; 96360; A4353

== ENCOUNTER 2019-09-17 00:56 | Inpatient (IN) | payer MEDICARE, OTHER ==
[2019-09-17] MEDS ORDERED: Acetaminophen 650 MG Suppository ONE (02:06)
[2019-09-17 02:21] LABS: Hemoglobin 9.8 g/dL (12.0-16.0); Mean Corpuscular HGB CONC 30.7 g/dL (32.0-36.0); Mean Corpuscular Volume 94.5 fL (78.0-98.0); RBC Distribution Width 13.6 % (11.5-14.5); Red Blood Cell (RBC) Count 3.38 mill/uL (4.20-5.40)
[2019-09-17 02:22] LABS: ALT (SGPT) Less than 7 U/L (8-55); AST (SGOT) 14 U/L (5-34); Albumin 3.5 g/dL (3.4-4.8); Alkaline Phosphatase 47 U/L (40-110); Anion Gap 16 mmol/L (10-20); BUN (Urea Nitrogen) 27 mg/dL (9.8-20.1); Calc. Creatinine Clearance 0 mL/min (70-130); Calcium 9.4 mg/dL (7.8-10.44); Carbon Dioxide 21 mmol/L (23-31); Chloride 118 mmol/L (98-107); Estimated GFR-MDRD 66; Globulin 3.7 g/dL (2.4-3.5); Glucose 166 mg/dL (83-110); Potassium 3.8 mmol/L (3.5-5.1); Protein, Total 7.2 g/dL (6.0-8.3); Sodium 151 mmol/L (136-145)
[2019-09-17 02:42] LABS: Band 39 % (5-11); Lymphocytes 2 % (21-51); MDiff Complete? YES; Monocytes 1 % (0-10); Neutrophil 58 % (42-75); Platelet Count 295 thou/uL (130-400); White Blood Cell (WBC) Count 22.6 thou/uL (4.8-10.8)
[2019-09-17] MEDS ORDERED: Vancomycin 1 GM/200 ML BAG ONE (02:42)
[2019-09-17 02:43] LABS: CKMB 1.2 ng/mL (0-6.6)
[2019-09-17] MEDS ORDERED: Aztreonam 1 GM in Sodium Chloride 0.9% 100 ML IVPB SCH (02:45)
[2019-09-17 05:25] LABS: Lactic Acid 2.3 mmol/L (0.5-2.2)
[2019-09-17] MEDS ORDERED: Senokot S 8.6-50 MG TAB PO PRN (05:41)
[2019-09-17] MEDS ORDERED: Acetaminophen 325 MG TAB PO PRN (05:41)
[2019-09-17] MEDS ORDERED: CCU Electrolyte Replacement 1 EACH IVPB ONE (07:28)
[2019-09-17] MEDS ORDERED: Pharmacy to Dose VANCOMYCIN/MEROPENEM IVPB PRN (07:33)
[2019-09-17] MEDS ORDERED: Dextrose 5% in Water 1,000 ML IV SCH ×2 (07:45→14:22)
[2019-09-17] MEDS ORDERED: Potassium Chloride 40 MEQ in Premix Bag 1 BAG IVPB PRN (07:47)
[2019-09-17] MEDS ORDERED: Potassium Phosphate 15 MMOL in Sodium Chloride 0.9% 250 ML 250 ML IV PRN (07:47)
[2019-09-17] MEDS ORDERED: Potassium Chloride 40 MEQ in Sodium Chloride 0.9% 250 ML 250 ML IVPB PRN (07:47)
[2019-09-17] MEDS ORDERED: PHOS-NAK 1 PKT PACK PO PRN ×2 (07:47)
[2019-09-17] MEDS ORDERED: Magnesium Oxide 400 MG TAB PO PRN ×2 (07:47)
[2019-09-17] MEDS ORDERED: Magnesium 2 GM/50 ML 2 GM in Premix Bag 1 BAG IVPB PRN (07:47)
[2019-09-17] MEDS ORDERED: CCU ELECTROLYTE REPLACEMENT PROTOCOL FS PRN (07:47)
[2019-09-17] MEDS ORDERED: Potassium Chloride 20 MEQ TAB PO PRN (07:47)
[2019-09-17] MEDS ORDERED: Potassium Phosphate 12 MMOL in Sodium Chloride 0.9% 250 ML 250 ML IV PRN (07:47)
[2019-09-17] MEDS ORDERED: Potassium Phosphate 9 MMOL in Sodium Chloride 0.9% 100 ML IVPB PRN (07:47)
--- NOTE | 2019-09-17 08:48 | HP ---
CHIEF COMPLAINT: Shortness of breath. HISTORY OF PRESENT ILLNESS: The patient is an 89-year-old female with a history of dementia. She resides in a prison at [facility], who was brought in for worsening respiratory distress. The patient was unable to provide history. I did try to call the patient's marketing programs manager, Kayce Hernandes at [phone], unable to reach her. Per records, it was noted that the patient is normally at 2 L of nasal cannula. She was recently admitted to the hospital and discharged last month with aspiration pneumonia. However, when she came into the ER, she was found to be hypoxic, and at this time, she was put on a face mask. PAST MEDICAL HISTORY: 1. She has a history of hyperlipidemia. 2. She is legally blind as she has macular degeneration. 3. GERD. 4. She has dysphagia. 5. She has a history of osteoarthritis. 6. She has had a history of pneumonitis. 7. She has hypercholesterolemia. PAST SURGICAL HISTORY: According to the note, she has had cholecystectomy, hysterectomy, total knee replacement, tubal ligation, pacemaker, and right foot surgery. SOCIAL HISTORY: Per notes, no history of smoking, alcohol use, or drug use. She is currently living in a prison, and as I mentioned, per her documentations, she is a DNAR. REVIEW OF SYSTEMS: Unable to obtain. FAMILY HISTORY: Unable to obtain since the patient cannot provide. PHYSICAL EXAMINATION: VITAL SIGNS: As of the following; temperature of 98.8, heart rate of 96, blood pressure 110/60, respirations are 20, 100% on a face mask. GENERAL: She is not really responsive. She does not follow commands. Unknown baseline. The patient does not appear to be tachypneic. CV: S1 and S2 present. No murmurs, rubs, or gallops. LUNGS: She has diminished breath sounds to bilateral lower bases. ABDOMEN: Soft and nontender. Bowel sounds are present x2. EXTREMITIES: She has some lower extremity edema and some dry skin noted. NEUROVASCULAR: Again, unable to assess. The patient does not follow commands. She is not moving any of her upper extremities or lower extremities. SKIN: She does have some dry skin to her lower extremities; however, no cuts, lesions, or bruises noted. LABORATORY RESULTS: WBCs of 22.6, hemoglobin of 9.8, hematocrit of 31.9, platelets of 295. Chemistry; sodium of 151, potassium of 3.8, BUN of 27, creatinine of 0.82. The lactic acid is 2.3. Her BNP is 930. Her troponin x1 is negative. She did have a CT chest, which indicated some consolidation to bilateral lower lung bases. ASSESSMENT AND PLAN: The patient is an 89-year-old female, who presents to the hospital with complaints of shortness of breath. 1. Acute hypoxic respiratory failure. She is currently on a nonrebreather. She is saturating in the 96% to 98%. We will try and see if we can wean her off. Her CT chest showed significant bilateral lower lung consolidation. She recently was treated last month with aspiration pneumonia and also was seen by Speech for a specific diet. The current x-rays shows maybe possible some worsening opacification on the right side; however, it is really hard to say. She is allergic to penicillin. We will start her on really broad-spectrum antibiotics with meropenem and vancomycin. She is also COVID rule out, which has been sent. I will try and get in touch with her POA again. Her overall prognosis appears really poor. 2. Sepsis. She does have leukocytosis. She is hypoxic, possible pneumonia. Again, we will start her on some antibiotics and continue to monitor. She did have mild lactic acidosis. Again, we will follow along. 3. Hypernatremia. Her sodium was 151. We will start her on some D5 water and continue to monitor. 4. Possible aspiration pneumonia. She has had aspiration pneumonia in the past, and the recommendation was to put her on a pureed diet with nectar thick liquids; however, currently, the patient will not be able to eat this diet. She is pretty obtunded. 5. Deep venous thrombosis prophylaxis. We will put the patient on some sequential compression devices. 6. I will go ahead and consult Palliative Care since the patient's, again, overall prognosis appears very very poor. Job ID: [id number]
[2019-09-17] MEDS ORDERED: Prevnar 13-Val Conj/PF 0.5 ML SYRINGE IM ONE (09:00)
[2019-09-17] MEDS ORDERED: Meropenem 1 GM in Sodium Chloride 0.9% 100 ML IVPB SCH (09:00)
[2019-09-17] MEDS ORDERED: Vancomycin HCl 1.5 GM in Sodium Chloride 0.9% 250 ML 300 ML IVPB SCH (09:00)
--- NOTE | 2019-09-17 09:02 | CT ---
PRELIMINARY REPORT/[facility]/EMERGENCY AFTER HOURS PROCEDURE EXAM: CT Chest, Without Contrast. DATE/ TIME: 09/17/2019, 2:16 AM INDICATION: Difficulty breathing; fever TECHNIQUE: Helical CT of the chest was performed without intravenous contrast. Coronal and sagittal reconstructions were generated and reviewed. Exam was performed using one or more of the following dose reduction techniques: automated exposure control, adjustment of the mA and/or kV according to p atient size, or use of iterative reconstruction technique. COMPARISON: None. FINDINGS: Airspace consolidation is present within a large component of the right lower lobe as well as in the left lower lobe, inferior lingula and scattered in the right upper and right middle lobes. This patient has a large hiatal hernia measuring up to 12 cm with a large portion of the stomach in a retrocardiac location. Endoluminal secretions are occluding bronchioles within the right middle a nd right lower lobes. Left subclavian bipolar cardiac transvenous pacing device is present. The hea rt shows marked left atrial dilatation. There is dense mitral annular calcification. Aorta is unfol ded containing atherosclerotic calcified plaque. No significant pleural effusion is evident. 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 A subacute fracture through the sternum is best seen on coronal reconstructions. A moderate anterior wedge compression deformity of T7 has a chronic appearance. A severe anterior wedge compression defo rmity of T12 also appears chronic. Kyphoscoliosis of the spine is seen. Sutural anchors in the left humeral head are seen. Advanced osteoarthrosis of the right glenohumeral joint is noted. IMPRESSION: 1. Multifocal pneumonia with the right lower lobe the worst with evidence of aspiration. 2. Cardiomegaly with aortic atherosclerosis. 3. Large hiatal hernia with intrathoracic stomach. ELECTRONICALLY SIGNED BY: Gage Watson DO Sep 17, 2019 2:57:40 AM CDT FINAL REPORT I agree with the preliminary report given by Dr. Gage Watson of [facility].
[2019-09-17] MEDS: MEROPENEM 1 GM/50 ML 1 GM in Premix Bag 1 BAG IVPB SCH ×2 (09:30→21:36)
[2019-09-17] MEDS: Enoxaparin Sodium 40 MG/0.4 ML SYRINGE SC SCH (09:34)
--- NOTE | 2019-09-17 09:48 | RAD ---
PORTABLE CHEST 1 VIEW: DATE: 09/17/2019. TIME: 1:40 AM. HISTORY: Pneumonia. COMPARISON: 08/08/2019. FINDINGS/IMPRESSION: The heart size is enlarged. Left-sided pacing device again seen. There are infiltrates in the left lung base and the right lower lung. No pneumothoraces are seen. No large effusions are identified. A hiatal hernia is present. POS: [facility]
[2019-09-17 14:58] LABS: Anion Gap 16 mmol/L (10-20); BUN (Urea Nitrogen) 24 mg/dL (9.8-20.1); Calc. Creatinine Clearance 38 mL/min (70-130); Calcium 9.4 mg/dL (7.8-10.44); Carbon Dioxide 21 mmol/L (23-31); Chloride 117 mmol/L (98-107); Estimated GFR-MDRD 83; Glucose 122 mg/dL (83-110); Potassium 3.4 mmol/L (3.5-5.1); Sodium 151 mmol/L (136-145)
--- NOTE | 2019-09-17 15:00 | CON ---
DATE OF CONSULTATION: 09/17/2019 HISTORY OF PRESENT ILLNESS: Ms. Pacheco is an 89-year-old female. She is admitted with complaints of shortness of breath. Apparently, she is a assisted resident with dementia. She came from the [facility]. My understanding was that the [facility] had been completely tested for COVID-19 and everybody was negative. She has been admitted as a rule out COVID patient. PAST MEDICAL HISTORY: Remarkable for: 1. Legally blind. 2. Reflux disease. 3. Dysphagia. 4. Degenerative arthritis. 5. History of lipid disorder. 6. History of cholecystectomy. 7. History of hysterectomy. 8. Total knee replacement. 9. History of pacemaker. 10. Right foot surgery. SOCIAL HISTORY: She is a nonsmoker, nondrinker. REVIEW OF SYSTEMS: Otherwise negative. FAMILY HISTORY: Noncontributory. PHYSICAL EXAMINATION: VITAL SIGNS: She is afebrile. Heart rate is 109, blood pressure 133/63, respiratory rates in the 30s. HEAD AND NECK: Unremarkable. LUNGS: Remarkable for coarse equal breath sounds. HEART: Regular rhythm. ABDOMEN: Soft. EXTREMITIES: Without edema. LABORATORY DATA: White count 22.6, hemoglobin 9.8, and platelets 295. Sodium 151, potassium 3.8, chloride 118, bicarb BUN 27, creatinine 0.82. IMPRESSION: 1. Dementia. 2. Aspiration pneumonia. 3. Hyperosmolar state secondary to intravascular volume depletion. We will try to get confirmation that she had a recent negative COVID test. She has one pending here. Hopefully, we will have that by the end of the day. She should continue with antimicrobial therapy. Nebulizer therapy will need to be added if she is negative. This is a 70 min consult with 50% of time spent on unit with coordination of care. Job ID: [id number] [facility]
[2019-09-18 03:56] LABS: Anion Gap 14 mmol/L (10-20); BUN (Urea Nitrogen) 26 mg/dL (9.8-20.1); Calc. Creatinine Clearance 38 mL/min (70-130); Calcium 9.3 mg/dL (7.8-10.44); Carbon Dioxide 21 mmol/L (23-31); Chloride 119 mmol/L (98-107); Estimated GFR-MDRD 83; Glucose 129 mg/dL (83-110); Potassium 3.8 mmol/L (3.5-5.1); Sodium 150 mmol/L (136-145)
[2019-09-18 04:07] LABS: Band 33 % (5-11); Hemoglobin 8.9 g/dL (12.0-16.0); Lymphocytes 5 % (21-51); MDiff Complete? YES; Mean Corpuscular HGB CONC 31.4 g/dL (32.0-36.0); Mean Corpuscular Hemoglobin 29.7 pg (27.0-31.0); Mean Corpuscular Volume 94.3 fL (78.0-98.0); Mean Platelet Volume 8.6 fL (7.4-10.4); Monocytes 4 % (0-10); Neutrophil 58 % (42-75); Platelet Count 276 thou/uL (130-400); RBC Distribution Width 13.7 % (11.5-14.5); Red Blood Cell (RBC) Count 2.99 mill/uL (4.20-5.40); White Blood Cell (WBC) Count 21.3 thou/uL (4.8-10.8)
--- NOTE | 2019-09-18 07:29 | PDOC.EVN ---
Event Note - Event Note Event Note: Late entry note from yesterday Patient seen at bedside, still tachypneic and short of breath. No congestion Physical exam: very tachypneic. RUL and RLL crackles evident. Appears malnourished. Abd soft, nontender, nondistended Plan: #Hypernatremia #Lactic acidosis #Likely aspiration pneumonia - sodium 151, D5W increased to 100/hour - continue broad-spectrum antibiotics
--- NOTE | 2019-09-18 07:40 | PRG ---
DATE OF SERVICE: 09/18/2019 SUBJECTIVE: Junior is clinically unchanged. OBJECTIVE: VITAL SIGNS: Heart rate 114, respiratory rates in the 30s, oximetry is 94% on 50% mask, blood pressure 121/61. LUNGS: Remarkable for rhonchi. HEART: Regular rhythm. ABDOMEN: Soft. EXTREMITIES: Without edema. LABORATORY DATA: White count 21.3, hemoglobin 8.9, platelets 276. Sodium 150, potassium 3.8, chloride 119, bicarb 21, BUN 26, creatinine 0.67. IMPRESSION: 1. Pneumonia most likely aspiration-mediated. 2. Hyperosmolar state. She needs to continue with intravenous free water. Her prognosis is quite poor. Job ID: [id number]
[2019-09-18] MEDS: Vancomycin HCl 500 MG in Sodium Chloride 0.9% 100 ML IVPB SCH (09:01)
[2019-09-18] MEDS: Enoxaparin Sodium 40 MG/0.4 ML SYRINGE SC SCH (09:02)
[2019-09-18] MEDS: Dextrose 5% in Water 1,000 ML IV SCH ×3 (09:02→21:01)
[2019-09-18] MEDS: MEROPENEM 1 GM/50 ML 1 GM in Premix Bag 1 BAG IVPB SCH ×2 (10:34→21:01)
[2019-09-18 14:36] LABS: Anion Gap 12 mmol/L (10-20); BUN (Urea Nitrogen) 24 mg/dL (9.8-20.1); Calc. Creatinine Clearance 41 mL/min (70-130); Calcium 9.1 mg/dL (7.8-10.44); Carbon Dioxide 21 mmol/L (23-31); Chloride 120 mmol/L (98-107); Estimated GFR-MDRD 89; Glucose 146 mg/dL (83-110); Potassium 3.3 mmol/L (3.5-5.1); Sodium 150 mmol/L (136-145)
--- NOTE | 2019-09-18 17:31 | PDOC.PALCO ---
Palliative Care Consult - Consult Details Requesting Physician: Dr Ruiz Reason for Consult: goals of care, complex decision-making - Pertinent HPI 86 year old female with know history of dementia. Resides at [facility] and is dependent for all ADL. O2 dependent at 2-3l. She had onset of respiratory distress and EMS was called for transport to [facility] emergency room for further evaluation. After evaluation was admitted for acute hypoxic respiratory failure, and suspected aspiration pneumonia. - Social History Smoking Status: Never smoker Smoking: no tobacco exposure Alcohol Use: none Drug Use History: none Living Situation: [facility] resident - Medications MAR Reviewed: Yes - Allergies Allergies/Adverse Reactions: Allergies Allergy/AdvReac Type Severity Reaction Status Date / Time pregabalin [From Lyrica] Allergy Unknown Verified 08/10/19 09:14 codeine Allergy Verified 08/10/19 09:14 Latex, Natural Rubber Allergy Verified 08/10/19 09:14 Penicillins Allergy Verified 08/10/19 09:14 - Subjective Non verbal, labored shallow respirations. - ROS Non Response: due to mental status - Objective Vital Signs: Vital Signs - Most Recent Temp Pulse Resp BP Pulse Ox 98.2 F 90 29 H 97 09/18/19 15:54 09/18/19 15:00 09/18/19 15:00 09/18/19 15:00 Palliative Performance Scale: 20 - Physical Exam Constitutional: cachectic, encephalitic, ill appearing HEENT: moist MMs, sclera anicteric Respiratory: accessory muscle use, labored respirations Cardiovascular: RRR Gastrointestinal: incontinent Genitourinary: incontinent Musculoskeletal: no cyanosis, no edema, pulses present Skin: cap refill <2 seconds, fragile Deviation from normal: encephalopathic - Problem List (1) Dementia Code(s): F03.90 - UNSPECIFIED DEMENTIA WITHOUT BEHAVIORAL DISTURBANCE Current Visit: Yes Status: Acute (2) Respiratory failure Code(s): J96.90 - RESPIRATORY FAILURE, UNSP, UNSP W HYPOXIA OR HYPERCAPNIA Current Visit: Yes Status: Acute (3) Physical debility Code(s): R53.81 - OTHER MALAISE Current Visit: Yes Status: Acute (4) Palliative care encounter Code(s): Z51.5 - ENCOUNTER FOR PALLIATIVE CARE Current Visit: Yes Status: Acute (5) Physical deconditioning Code(s): R53.81 - OTHER MALAISE Current Visit: No Status: Acute - Plan/Recommendations Plan: Palliative Care assessment, non responsive. Patient son is MPOA, however he defers to patient long time caregiver. Dorothy Crowder RN initiated conversation in relation to poor meaningful recovery and if hospice had been considered. Palliative Care will follow up to readdress goal of care with patient son, and include caregiver if indicated to have goal of care reflect what patient wishes would be is she was verbal. Please refer to Dorothy Crowder RN Notes in Note section Communicated with Dr Ochoa [30] minutes spent on this encounter with >50% of the time in counseling and coordination of care. Thank you for this very appropriate consult.
[2019-09-18] MEDS ORDERED: Acetaminophen 650 MG Suppository PR PRN (19:50)
--- NOTE | 2019-09-18 22:11 | PDOC.HOSPP ---
- Subjective Encounter Date: 09/18/19 Encounter Time: 11:00 Subjective: The patient is still non-verbal, not cooperative and not opening her mouth or eyes. - Objective Vital Signs & Weight: Vital Signs (12 hours) Temp Pulse Resp Pulse Ox 09/18/19 21:58 99 20 99 09/18/19 19:23 99.8 F H 09/18/19 18:24 93 22 H 96 09/18/19 15:54 98.2 F 09/18/19 15:00 90 29 H 97 09/18/19 11:51 98.2 F 09/18/19 11:32 97 31 H 95 Weight Admit Weight 94 lb Weight 94 lb Most Recent Monitor Data Heart Rate from ECG 102 NIBP 120/55 NIBP BP-Mean 76 Respiration from ECG 28 SpO2 100 I&O: 09/17/19 09/18/19 09/19/19 06:59 06:59 06:59 Intake Total 400 746 Output Total 0 926 Balance 0 -526 746 Result Diagrams: 09/18/19 03:25 09/18/19 14:10 Hospitalist ROS - Review of Systems ROS unobtainable: due to mental status Constitutional: reports: chills. denies: fever - Medication Medications: Active Medications Generic Name Dose Route Start Last Admin Trade Name Freq PRN Reason Stop Dose Admin Albuterol/Ipratropium 3 ml 09/17/19 18:30 09/18/19 21:58 Duoneb NEB 3 ml [id number] VARUN Administration Enoxaparin Sodium 40 mg 09/17/19 09:00 09/18/19 09:02 Lovenox SC 40 mg 0900 VARUN Administration Potassium Chloride 40 meq/ 270 mls @ 135 mls/hr 09/17/19 07:47 09/17/19 17:38 Sodium Chloride IVPB 270 mls ASDIR PRN Administration FOR SERUM K+ 2.5 - 3.5 Vancomycin HCl 500 mg/ Sodium 100 mls @ 100 mls/hr 09/18/19 09:00 09/18/19 09 :01 Chloride IVPB 100 mls 0900 VARUN Administration Meropenem 1 gm/ Device 50 mls @ 200 mls/hr 09/17/19 09:00 09/18/19 21:01 IVPB 50 mls 0900,2100 VARUN Administration Dextrose/Water 1,000 mls @ 100 mls/hr 09/18/19 07:30 09/18/19 21:01 D5w IV 1,000 mls .Q10H VARUN Administration - Exam General Appearance: NAD General - other findings: lethargic, very tachypneic, cachexic Eye: PERRL, anicteric sclera ENT: normocephalic atraumatic, no oropharyngeal lesions Neck: supple, symmetric, no JVD Heart: RRR, no murmur, no gallops, no rubs Respiratory: CTAB, no wheezes, no rales, no ronchi, no tachypnea Gastrointestinal: soft, non-tender, non-distended, normal bowel sounds Extremities: no cyanosis, no clubbing, no edema Skin: normal turgor, no lesions, no rashes Neurological: cranial nerve grossly intact, normal sensation to touch, no weakness, no focal deficits Musculoskeletal: normal tone, normal strength, no muscle wasting Psychiatric: normal affect, normal behavior Hosp A/P - Plan This is an 89 year old female who presented with hypoxia and admitted for pneumonia #Acute hypoxic respiratory failure secondary to pneumonia #Acute encephalopathy secondary to dehydration #Hypernatremia - patient is not able to follow commands and does not respond - family was contacted and palliative care who stated that they will try to see if patient will respond to a familiar voice before considering hospice - continue vanc and meropenem - COVID negative Hypokalemia - potassium 3.3, continue replacement. Will add potassium to IV fluids Leukocytosis - WBC improving to 21, continue antibiotics Anemia - Hb 8, stable, will monitor
[2019-09-18] MEDS: Potassium Chloride 10 MEQ in Dextrose 5% in Water 1,000 ML IV SCH (23:00)
[2019-09-19 03:38] LABS: Anion Gap 11 mmol/L (10-20); BUN (Urea Nitrogen) 19 mg/dL (9.8-20.1); Calc. Creatinine Clearance 42 mL/min (70-130); Carbon Dioxide 22 mmol/L (23-31); Chloride 116 mmol/L (98-107); Estimated GFR-MDRD Greater than 90; Glucose 197 mg/dL (83-110); Potassium 3.2 mmol/L (3.5-5.1); Sodium 146 mmol/L (136-145)
[2019-09-19 04:16] LABS: Band 34 % (5-11); Hemoglobin 8.7 g/dL (12.0-16.0); Lymphocytes 1 % (21-51); MDiff Complete? YES; Mean Corpuscular HGB CONC 31.1 g/dL (32.0-36.0); Mean Corpuscular Volume 93.2 fL (78.0-98.0); Mean Platelet Volume 8.3 fL (7.4-10.4); Neutrophil 65 % (42-75); Platelet Count 311 thou/uL (130-400); RBC Distribution Width 13.8 % (11.5-14.5); White Blood Cell (WBC) Count 24.8 thou/uL (4.8-10.8)
[2019-09-19 08:59] LABS: Vancomycin, Trough 4.9 ug/mL
[2019-09-19] MEDS: Potassium Chloride 10 MEQ in Dextrose 5% in Water 1,000 ML IV SCH ×2 (09:49→20:54)
[2019-09-19] MEDS: Vancomycin HCl 500 MG in Sodium Chloride 0.9% 100 ML IVPB SCH ×3 (11:19→21:02)
[2019-09-19] MEDS: MEROPENEM 1 GM/50 ML 1 GM in Premix Bag 1 BAG IVPB SCH ×2 (11:51→20:54)
[2019-09-19] MEDS: Enoxaparin Sodium 40 MG/0.4 ML SYRINGE SC SCH (11:52)
[2019-09-19 12:34] VITALS: BMI 18.1
[2019-09-19] MEDS ORDERED: Morphine 2 MG/ML SYRINGE SLOW IVP PRN (12:42)
--- NOTE | 2019-09-19 14:56 | EKG ---
Test Reason : Blood Pressure : / mmHG Vent. Rate : 116 BPM Atrial Rate : 116 BPM P-R Int : 172 ms QRS Dur : 086 ms QT Int : 318 ms P-R-T Axes : 018 -03 005 degrees QTc Int : 442 ms Sinus tachycardia with occasional Premature ventricular complexes Possible Left atrial enlargement Left ventricular hypertrophy No STEMI Abnormal ECG Confirmed by LIO CHI M.D. ([id number]), publications editor ABY SEGURA ([id number]) on 09/19/2019 2:56:22 PM Referred By: Confirmed By:LIO CHI M.D.
--- NOTE | 2019-09-19 16:26 | PRG ---
DATE OF SERVICE: 09/19/2019 Ruth Pacheco, in my opinion, is close to passing. She has multiple signs of muscle fatigue. She is tachypneic. Her tidal volumes are very small. She is on 100% oxygen. Blood pressure is 111/58, heart rate is 113. Lungs, heart, abdomen are unchanged. She has rhonchi bilaterally. I met with her son and daughter. I have explained to them that she is getting tired and is close to passing away. It is not anticipated that she will survive this. Morphine will be provided for comfort. Continue with Lovenox, nebulizer treatments, and antimicrobial therapy. We will not change the outcome in my opinion. Job ID: [id number]
[2019-09-19] MEDS: Morphine 2 MG/ML SYRINGE SLOW IVP PRN ×2 (16:57→21:00)
--- NOTE | 2019-09-19 17:03 | PDOC.HOSPP ---
- Subjective Encounter Date: 09/19/19 Encounter Time: 11:00 Subjective: The patient is still non-verbal. She is more tachypneic. She is unable to answer questions. Family meeting held at 3:30 with palliative care. Patient is agreeable to hospice - Objective Vital Signs & Weight: Vital Signs (12 hours) Temp Pulse Resp Pulse Ox 09/19/19 15:17 99.0 F 09/19/19 14:45 113 H 37 H 90 L 09/19/19 12:00 87 L 09/19/19 11:07 98.5 F 09/19/19 10:10 116 H 36 H 90 L 09/19/19 08:00 92 L 09/19/19 07:39 99.6 F 09/19/19 06:50 102 H 30 H 93 L Weight Admit Weight 94 lb 5.725 oz Weight 96 lb Most Recent Monitor Data Heart Rate from ECG 119 NIBP 120/64 NIBP BP-Mean 82 Respiration from ECG 33 SpO2 91 I&O: 09/18/19 09/19/19 09/20/19 06:59 06:59 06:59 Intake Total 400 1556 Output Total 926 Balance -526 1556 Result Diagrams: 09/19/19 03:14 09/19/19 03:14 Hospitalist ROS - Review of Systems Constitutional: denies: fever, chills - Medication Medications: Active Medications Generic Name Dose Route Start Last Admin Trade Name Freq PRN Reason Stop Dose Admin Enoxaparin Sodium 40 mg 09/17/19 09:00 09/19/19 11:52 Lovenox SC 40 mg 0900 VARUN Administration Potassium Chloride 40 meq/ 270 mls @ 135 mls/hr 09/17/19 07:47 09/17/19 17:38 Sodium Chloride IVPB 270 mls ASDIR PRN Administration FOR SERUM K+ 2.5 - 3.5 Meropenem 1 gm/ Device 50 mls @ 200 mls/hr 09/17/19 09:00 09/19/19 11:51 IVPB 50 mls 0900,2100 VARUN Administration Potassium Chloride 10 meq/ 1,005 mls @ 100 mls/hr 09/18/19 22:45 09/19/19 09: 49 Dextrose/Water IV 1,005 mls .Q10H3M VARUN Administration Vancomycin HCl 500 mg/ Sodium 100 mls @ 100 mls/hr 09/19/19 10:00 09/19/19 12 :39 Chloride IVPB 100 mls 1000,2200 VARUN Administration Morphine Sulfate 4 mg 09/19/19 15:07 09/19/19 16:57 Morphine SLOW IVP 4 mg Q1H PRN Administration Moderate Pain (4-6) - Exam General Appearance: NAD, awake alert Eye: PERRL, anicteric sclera ENT: normocephalic atraumatic, no oropharyngeal lesions Neck: supple, no JVD Heart: RRR, no murmur, no gallops, no rubs Respiratory: CTAB, no wheezes, no rales, no ronchi Gastrointestinal: soft, non-tender, non-distended, normal bowel sounds Extremities: no cyanosis, no clubbing, no edema Skin: normal turgor, no lesions, no rashes Neurological: cranial nerve grossly intact, normal sensation to touch, no focal deficits, no new deficit Musculoskeletal: normal tone, normal strength, no muscle wasting Psychiatric: normal affect, normal behavior, A&O x 3, oriented to person Hosp A/P - Plan Chest CT: multifocal pneumonia, worst in RLL This is an 89 year old female who presented with hypoxia and admitted for pneumonia #Acute hypoxic respiratory failure secondary to pneumonia likely aspiration #Acute encephalopathy secondary to dehydration #Hypernatremia - patient is not able to follow commands and does not respond - family meeting held and they are agreeable to hospice - continue vanc and meropenem - COVID negative - sodium has improved to 146. Continue D5W Hypokalemia - potassium 3.3, potassium added to IV fluids - will recheck BMP Leukocytosis - WBC up to 24, continue antibiotics, no fever Anemia - Hb 8, stable, will monitor Disposition: pending hospice evaluation. Patient has very poor prognosis
--- NOTE | 2019-09-19 17:16 | PDOC.PALPN ---
Palliative Progress Note - Subjective Labored respirations, non responsive. Son and family friend/caregiver at bedside. - Objective Vital Signs: Vital Signs - Most Recent Temp Pulse Resp BP Pulse Ox 99.0 F 113 H 37 H 90 L 09/19/19 15:17 09/19/19 14:45 09/19/19 14:45 09/19/19 14:45 - Physical Exam Constitutional: cachectic, encephalitic, ill appearing HEENT: EOMI, moist MMs, sclera anicteric Respiratory: accessory muscle use, diminished lung sound, labored respirations Cardiovascular: irregular Gastrointestinal: soft, non-tender, positive bowel sounds Genitourinary: incontinent Musculoskeletal: no cyanosis, no clubbing, diffuse muscle atrophy Skin: cap refill <2 seconds, fragile Deviation from normal: encephalopathic - Assessment (1) Dementia Code(s): F03.90 - UNSPECIFIED DEMENTIA WITHOUT BEHAVIORAL DISTURBANCE Current Visit: Yes Status: Acute (2) Respiratory failure Code(s): J96.90 - RESPIRATORY FAILURE, UNSP, UNSP W HYPOXIA OR HYPERCAPNIA Current Visit: Yes Status: Acute (3) Physical debility Code(s): R53.81 - OTHER MALAISE Current Visit: Yes Status: Acute (4) Palliative care encounter Code(s): Z51.5 - ENCOUNTER FOR PALLIATIVE CARE Current Visit: Yes Status: Acute (5) Physical deconditioning Code(s): R53.81 - OTHER MALAISE Current Visit: No Status: Acute - Plan Plan: Met with patient son and caregiver at bedside. Reviewed recent decline and poor prognosis for meaningful recovery. In discussion they do not feel she would wish to continue in the state she is in. Family has elected to transition to hospice. Pat will return call notifying of hospice choice. Dorothy Crowder RNleather novelty parts cutter provided them a hospice choice letter. Dr Ochoa discussed disease prognosis and trajectory toward decline. CM order placed for hospice evaluation Emotional support offered. Questions answered in relation to hospice. Please also refer to Dorothy Crowder RN notes in note section. [45] minutes spent on this encounter with >50% of the time in counseling and coordination of care. - ROS Non Response: due to mental status
[2019-09-19 19:32] LABS: Anion Gap 14 mmol/L (10-20); BUN (Urea Nitrogen) 19 mg/dL (9.8-20.1); Calc. Creatinine Clearance 44 mL/min (70-130); Carbon Dioxide 21 mmol/L (23-31); Chloride 113 mmol/L (98-107); Estimated GFR-MDRD Greater than 90; Glucose 168 mg/dL (83-110); Potassium 3.5 mmol/L (3.5-5.1); Sodium 144 mmol/L (136-145)
[2019-09-20] MEDS: Morphine 2 MG/ML SYRINGE SLOW IVP PRN ×3 (00:26→11:45)
[2019-09-20 07:07] VITALS: TEMP 97.7
[2019-09-20] MEDS: Potassium Chloride 10 MEQ in Dextrose 5% in Water 1,000 ML IV SCH (07:24)
[2019-09-20 08:49] LABS: Hemoglobin 8.7 g/dL (12.0-16.0); Mean Corpuscular HGB CONC 30.6 g/dL (32.0-36.0); Mean Corpuscular Hemoglobin 29.3 pg (27.0-31.0); Mean Corpuscular Volume 95.8 fL (78.0-98.0); Mean Platelet Volume 8.3 fL (7.4-10.4); Platelet Count 330 thou/uL (130-400); RBC Distribution Width 14.3 % (11.5-14.5); Red Blood Cell (RBC) Count 2.95 mill/uL (4.20-5.40); White Blood Cell (WBC) Count 27.3 thou/uL (4.8-10.8)
[2019-09-20] MEDS: Enoxaparin Sodium 40 MG/0.4 ML SYRINGE SC SCH (09:05)
[2019-09-20] MEDS: MEROPENEM 1 GM/50 ML 1 GM in Premix Bag 1 BAG IVPB SCH (09:06)
[2019-09-20 09:11] LABS: Anion Gap 11 mmol/L (10-20); BUN (Urea Nitrogen) 24 mg/dL (9.8-20.1); Calc. Creatinine Clearance 37 mL/min (70-130); Calcium 8.8 mg/dL (7.8-10.44); Carbon Dioxide 21 mmol/L (23-31); Chloride 111 mmol/L (98-107); Estimated GFR-MDRD 72; Glucose 169 mg/dL (83-110); Potassium 4.2 mmol/L (3.5-5.1); Sodium 139 mmol/L (136-145); Vancomycin, Trough 14.4 ug/mL
[2019-09-20] MEDS: Vancomycin HCl 500 MG in Sodium Chloride 0.9% 100 ML IVPB SCH (11:02)
--- NOTE | 2019-09-20 11:24 | PRG ---
DATE OF SERVICE: 09/20/2019 Ruth Pacheco is clinically unchanged. She is on 100% oxygen saturation . She is still tachypneic. She is hypotensive. The tentative plan is to get her to inpatient hospice. Job ID: [id number]
--- NOTE | 2019-09-20 15:32 | DIS ---
DATE OF ADMISSION: 09/17/2019 DATE OF DISCHARGE: 09/20/2019 DISCHARGE DIAGNOSES: 1. Acute hypoxic respiratory failure secondary to pneumonia. 2. Acute encephalopathy secondary to dehydration. 3. Hypernatremia. 4. Hypokalemia. 5. Leukocytosis. 6. Anemia. CONSULTATIONS: 1. Jake Burgos MD, with Pulmonary. 2. Palliative Care with [facility]. PROCEDURES: None. BRIEF HISTORY OF PRESENT ILLNESS: This is an 89-year-old female with a past medical history of dementia, dysphagia, osteoarthritis, who presented with worsening respiratory distress. The patient was normally on 2 L of oxygen. She was recently admitted to the hospital for aspiration pneumonia. She was put on a face mask and brought to the emergency room. She was noted to have a white blood cell count of 22.6 on admission. She had a sodium of 151 and a lactic acid of 2.3. She was normotensive upon arrival to the emergency room. She was given vancomycin and aztreonam and admitted for further workup. She also had a COVID test performed in the emergency room. HOSPITAL COURSE: 1. Acute hypoxic respiratory failure secondary to aspiration pneumonia: The patient was placed on a 15 L non-rebreather. She was treated with IV vancomycin and meropenem. Blood culture grew 1 out of 2 coag-negative staph. She was unable to be weaned off oxygen and was not able to be advanced to a diet due to severe lethargy. Family meeting was held on 09/18. They were agreeable to transition the patient to inpatient hospice. 2. Hypernatremia: The patient had presented with a sodium of 151. She was placed on D5W and her sodium eventually improved to 139 on discharge. The patient is not able to eat adequate oral intake due to severe tachypnea. Her IV fluids were discontinued on discharge since the patient is going to hospice. 3. Leukocytosis: The patient's white blood cell count was 22.6, likely secondary to pneumonia. Her white count went up to 27.3 on the day of discharge. She has no fevers. She was tested for coronavirus and came back negative. She will be discharged to hospice. 4. Acute encephalopathy: Patient's mental status was very poor in the hospital. She was unable to answer any questions and was very lethargic. Even after resuscitation with IV fluids, her mental status did not improve. The patient will be transitioned to inpatient hospice for further care. DISCHARGE PHYSICAL EXAMINATION: VITAL SIGNS: Temperature 97.7, heart rate 113, respiratory rate 37, O2 saturation 80% on 15 L non-rebreather. Blood pressure: 94/59. GENERAL: The patient is very cachectic with severe muscle wasting. She is in a contracted position. RESPIRATORY: The patient is on a non-rebreather. She has clear breath sounds bilaterally. CVS: The patient is tachycardic with no murmurs, rubs, or gallops. ABDOMEN: Positive bowel sounds, soft, nontender, nondistended. EXTREMITIES: No edema. HEENT: The patient is severely dehydrated. LABORATORY DATA: CBC 09/19: White blood cell count 27.3, hemoglobin 8.7, hematocrit 28.3, platelet count 330. BMP 09/16: Sodium 151, potassium 3.4, chloride 117, bicarb 21, BUN 24, creatinine 0.67, glucose 122. Lactic acid: 2.3. Troponin I: 0.054. BNP: 930.9. COVID PCR: Negative. IMAGING: Chest x-ray 09/16: No large effusions are identified. Infiltrates in the left lung base and in the right lower lung. CT chest 09/16: Multifocal pneumonia within the right lower lobe, worse with evidence of aspiration. 1. Cardiomegaly with aortic atherosclerosis. 2. Large hiatal hernia with intrathoracic stomach. DISCHARGE CONDITION: Very grave with a poor prognosis. ACTIVITY: The patient is bed-bound. She is unable to participate in any activities. DIET: N.p.o. DISCHARGE INSTRUCTIONS: The patient is to be transitioned to inpatient hospice. DISCHARGE MEDICATIONS: 1. Vancomycin 500 mg q.12. 2. Meropenem 1 g q.12. 3. All other home medications resumed if the patient is able to take p.o. Job ID: [id number] MTDD
--- NOTE | 2019-09-21 06:06 | PQF ---
SHREYAS MEDINA HUMA CORONADO [id number] CLINICAL DOCUMENTATION CLARIFICATION FORM: POST DISCHARGE Addendum to original discharge summary date: ____ Late entry note date: __ DATE: 09/21/19 ATTN:Huma Ochoa Please exercise your independent, professional judgment in responding to the clarification form. Clinical indicators are provided on the bottom of this form for your review Can you please further clarify if Sepsis is ruled in or ruled out? Sepsis [ X ] Ruled in diagnosis [ ] Continue to treat [ ] Resolved [ ] Ruled out diagnosis [ ] Cannot rule out diagnosis [ ] Other diagnosis please specify [ ] Unable to determine In addition, please specify: Present on Admission (POA): [ ] Yes [ ] No [ ] Unable to determine For continuity of documentation, please document condition throughout progress notes and discharge summary. Thank You. CLINICAL INDICATORS - SIGNS / SYMPTOMS / LABS ED Provider pg.4- Sepsis PN 09/19 pg.1- she is still tachypneic. She is hypotensive DS pg.2- Leukocytosis the patient WBC count was 22.6 likely 2/2 pneumonia H and P pg.1- VS Temp 98.8, HR 96, BP 110/60, RR 20 H and P pg.3- Sepsis. She does have leukocytosis H and P pg.3- she did have mild lactic acidosis Microbiology- Blood culture final: Coagulase neg staphylococcus Laboratory- WBC 22.6H, 21.3H, 24.8H, 27.3H PN p4 09/17 acute encephalopathy Labs Lactate: 09/16=2.3 RISK FACTORS Aspiration Pneumonia- DS pg.1 Anemia- DS pg.1 89 years old- H and P pg.1 Dementia ED Notes pg 09/16 TREATMENTS Chest X ray 09/[address] Burgos Chest CT 09/16 Blood culture- Microbiology IV Fluids- MAR Oxygen supplementation Vancomycin 1gm IV- MAR Merrem 1gm IV JUL 24 (This form is maintained as a part of the permanent medical record) 2014 [employer]. All Rights Reserved [email or web address]
== END 2019-09-20 11:55 | disposition hospice, inpatient (51) | DRG 871 ==
LOC: ERS 00:56 → CCU 03:41 → IMCU/EMU 16:41
PROVIDERS: ADMIT Internal Medicine; ATTEND Internal Medicine
DX: A41.9 Sepsis, unspecified organism (principal); J69.0 Pneumonitis due to inhalation of food and vomit; J96.01 Acute respiratory failure with hypoxia; E87.0 Hyperosmolality and hypernatremia; E87.2 Acidosis; G93.40 Encephalopathy, unspecified; Z66 Do not resuscitate; Z51.5 Encounter for palliative care; E78.5 Hyperlipidemia, unspecified; I10 Essential (primary) hypertension; M41.9 Scoliosis, unspecified; H54.8 Legal blindness, as defined in USA; K21.9 Gastro-esophageal reflux disease without esophagitis; E78.00 Pure hypercholesterolemia, unspecified; M19.90 Unspecified osteoarthritis, unspecified site; F03.90 Unspecified dementia, unspecified severity, without behavioral disturbance, psychotic disturbance, mood disturbance, and anxiety; Z20.828 Contact with and (suspected) exposure to other viral communicable diseases; E87.6 Hypokalemia; D64.9 Anemia, unspecified; R13.10 Dysphagia, unspecified; E86.0 Dehydration; Z95.0 Presence of cardiac pacemaker; Z88.5 Allergy status to narcotic agent; Z88.0 Allergy status to penicillin; Z88.8 Allergy status to other drugs, medicaments and biological substances; Z91.040 Latex allergy status; Z79.899 Other long term (current) drug therapy; Z79.82 Long term (current) use of aspirin; Z90.710 Acquired absence of both cervix and uterus; Z90.49 Acquired absence of other specified parts of digestive tract
CPT/HCPCS: 36415; 71045; 71250; 80048; 80053; 80202; 82553; 83605; 83880; 84484; 85025; 85027; 87040; 87149; 87635; 90471; 90670; 93005; 94640; G0009; J1650; J2185; J2270; J3370; J3480; J3490; J7050; J7070; J7620; U0002